=== PATIENT | female | born 1950 | race Caucasian/White ===

== ENCOUNTER 2016-10-30 14:59 | Observation (INO) ==
--- NOTE | 2016-10-30 15:49 | Emergency Department Note ---
Disposition Clinical Impression: HTN (hypertension), Confusion, Frail elderly, Diabetes, HLD (hyperlipidemia), Atrophy, cortical, Cerebrovascular disease, Pituitary adenoma, UTI (urinary tract infection), Lung mass, Thrombocythemia Disposition: Admitted As Inpatient Referrals: NO,PCP [Non-Partnered Physician] - Forms: ED Satisfaction Letter General Adult HPI - General Chief complaint: ED Altered Mental Status Stated complaint: AMS Time Seen by Provider: 10/30/16 15:38 Source: patient - History of Present Illness HPI Narrative: 66-year-old female reportedly had an episode of confusion or dizziness last week , she states her her friend noticed this, subsequently the patient's primary care physician ordered an MRI of her head. She came to the hospital today to get obtain the MRI, and per staff the patient was confused and did not really remember why she was at MRI, there was concern for confusion so the patient was sent to the ED. The patient reportedly feels better now. There is no history of convulsion fall syncope chest pain shortness of breath abdominal pain vomiting or diarrhea. The patient states she is diabetic and tells me that her hemoglobin A1c is 5.4 range. She denies headache neck stiffness rash or fever. No dysarthria or unilateral arm or leg weakness or numbness. There is no history of skin rash urinary problems or acute back pain. The patient came to the hospital by herself. She has no complaints at this time. Pain Scale: 0 - Related Data Home Medications Medication Instructions Recorded Confirmed Gabapentin [Neurontin] 300 mg PO TID 12/18/15 08/19/16 Latanoprost 1 drop BOTH EYES HS 12/18/15 08/19/16 Lisinopril [Zestril] 1 tab PO BID 12/18/15 08/19/16 Lovastatin [Altoprev] 40 mg PO DAILY 12/18/15 08/19/16 Metformin HCl [Fortamet] 1,000 mg PO BID 12/18/15 08/19/16 ClonazePAM [Klonopin] 2 mg PO HS 05/07/16 08/19/16 Venlafaxine HCl [Venlafaxine HCl 75 mg PO DAILY 05/07/16 08/19/16 ER] Previous Rx's Medication Instructions Recorded Bisacodyl [Dulcolax] 10 mg RC DAILY PRN #30 supp.rect 08/19/16 Allergies Allergy/AdvReac Type Severity Reaction Status Date / Time No Known Allergies Allergy Verified 10/30/16 15:30 All systems ED: reviewed and negative except as stated. Past Medical History - Past Medical History Medical history: Reports: CVA, diabetes, hyperlipidemia, osteoporosis, renal disease, other Surgical history: Reports: other Psychiatric history: Reports: anxiety, depression - Social History Smoking Status: Current every day smoker Smokeless Tobacco Status: No Alcohol use: Reports: none Drug use: Reports: none Physical Exam - General Limitations: no limitations General appearance: alert, in no apparent distress - Head Head exam: atraumatic, normocephalic, normal inspection - Eye Eye exam: Present: normal appearance, PERRL, EOMI. Absent: scleral icterus, conjunctival injection, miosis, mydriasis - ENT ENT exam: normal exam, normal oropharynx, mucous membranes moist, TM's normal bilaterally, normal external ear exam - Neck Neck exam: Present: normal inspection, full ROM, trachea midline. Absent: tenderness - Chest Chest inspection: Present: symmetric chest wall rise. Absent: tenderness - Respiratory Respiratory exam: Present: normal lung sounds bilaterally. Absent: respiratory distress, accessory muscle use, prolonged expiratory phase - Cardiovascular Cardiovascular exam: Present: regular rate, normal rhythm, normal heart sounds - Abdominal Exam Abdominal exam: Present: soft, Non-Tender, normal bowel sounds. Absent: tenderness, distention, guarding, rebound, rigidity - Extremities Exam Extremities exam: Present: normal inspection, full ROM, normal capillary refill. Absent: tenderness, pedal edema, joint swelling, calf tenderness - Expanded Lower Extremity Exam Lower leg exam: Absent: Homans' sign Neurovascular/Tendon exam: Present: normal capillary refill. Absent: motor deficit, sensory deficit, tendon deficit, extremity cold to touch, pallor - Back Exam Back exam: Present: normal inspection, full ROM. Absent: tenderness, CVA tenderness (R), CVA tenderness (L), vertebral tenderness - Neurological Exam Neurological exam: Present: alert, oriented X3, CN II-XII intact. Absent: motor sensory deficit - Psychiatric Psychiatric exam: Present: normal affect, normal mood - Skin Skin exam: Present: warm, dry, intact, normal color. Absent: rash, cyanosis, diaphoresis, erythema, pallor, mottled Course Vital Signs Temperature 98.3 F 10/30/16 15:27 Pulse Rate 70 10/30/16 15:27 Respiratory Rate 16 10/30/16 15:27 Blood Pressure 170/90 10/30/16 15:27 O2 Sat by Pulse Oximetry 96 10/30/16 15:27 Temperature 98.3 F 10/30/16 15:27 Pulse Rate 75 10/30/16 17:50 Respiratory Rate 16 10/30/16 17:20 Blood Pressure 159/97 10/30/16 17:50 O2 Sat by Pulse Oximetry 95 10/30/16 17:50 Oxygen Delivery Oxygen Delivery Room Air Medical Decision Making - MDM Narrative Medical decision making narrative: The patient's son-in-law came in and we reviewed the case with him, multiple episodes of confusion were identified. The patient recounts a history of being prescribed Cipro several days ago for a urinary tract infection. She still has urinary changes, IV Rocephin was given. The patient's diastolic pressure was high as 119 here in the emergency department. Based on the patient's age, vascular risk factors including diabetes and hypertension, notably elevated blood pressure, recent and recurrent episodes of confusion, associated UTI, and newly identified pulmonary nodule, I thought it would be appropriate to admit her to the hospital. I discussed the case with the hospitalist on-call as excepted the patient to their care. The patient is currently stable. Aspirin was ordered. - Lab Data Lab results reviewed: Yes I reviewed the patient's lab results. Result diagrams: 10/30/16 16:33 10/30/16 16:33 Lab Results 10/30/16 10/30/16 10/30/16 Range/Units 16:33 16:33 16:33 WBC 9.1 (4.3-11.1) K/mcL RBC 4.04 (3.82-4.97) M/mcL Hgb 12.0 (11.5-15.4) g/dL Hct 37.5 (35.3-44.9) % MCV 92.8 (83.0-100.0) fL MCH 29.7 (28.0-33.3) pg MCHC 32.0 (31.6-35.5) g/dL RDW 12.5 (11.5-14.5) % Plt Count 417 H (140-400) K/mcL MPV 8.8 L (9.4-12.4) fL Immature Gran % 0.6 (0-4) % Seg Neutrophils % 49.1 % Lymphocytes % 35.0 % Monocytes % 11.0 % Eosinophils % 3.5 % Basophils % 0.8 % Neutrophils # 4.5 (1.6-8.9) K/mcL Lymphocytes # 3.2 (0.6-4.6) K/mcL Monocytes # 1.0 (0.0-1.3) K/mcL Eosinophils # 0.3 (0.0-0.6) K/mcL Basophils # 0.1 (0.0-0.2) K/mcL PT 10.9 (9.4-12.1) Seconds INR 1.0 APTT 32.8 (26.0-36.0) Seconds Sodium 140 (136-145) mEq/L Potassium 4.0 (3.5-4.5) mEq/L Chloride 107 (98-109) mEq/L Carbon Dioxide 25 (19-29) mEq/L BUN 16 (7-20) mg/dL Creatinine 1.18 H (0.57-1.11) mg/dL Est GFR ( Amer) 56 L (> 60) Est GFR (Non-Af Amer) 46 L (> 60) BUN/Creatinine Ratio 14 (6-26) Glucose 59 L (70-99) mg/dL Calculated Osmolality 289 (280-300) Lactic Acid (0.5-2.2) mmol/L Calcium 10.0 (8.6-10.8) mg/dL Total Bilirubin 0.6 (0.2-1.2) mg/dL Direct Bilirubin 0.2 (0.0-0.5) mg/dL Indirect Bilirubin 0.4 (0.0-1.2) mg/dL AST 29 (5-34) Units/L ALT 19 (0-55) Units/L Alkaline Phosphatase 90 (38-126) Units/L Ammonia (18-72) mcmol/L Troponin I (0-0.03) ng/mL C-Reactive Protein (Less than 5) mg/L Serum Total Protein 8.1 (6.0-8.3) g/dL Albumin 3.5 (3.5-5.0) g/dL Globulin 4.6 H (2.4-3.5) g/dL Albumin/Globulin Ratio 0.8 L (1.1-2.2) TSH 0.793 (0.350-4.840) mcIU/mL Urine Color (Yellow) Urine Clarity (Clear) Urine pH (5.0-8.0) pH Units Ur Specific [place] (1.010-1.025) Urine Protein (Neg-Trace) mg/dL Urine Glucose (UA) (Normal) mg/dL Urine Ketones (Negative) mg/dL Urine Blood (Negative) Urine Nitrite (Negative) Urine Bilirubin (Negative) Urine Urobilinogen (Normal) mg/dL Ur Leukocyte Esterase (Negative) Urine Microscopic RBC (0-3) per hpf Urine Microscopic WBC (0-3) per hpf Ur Squamous Epith Cells (None-Few) per lpf Urine Bacteria (None-Few) per hpf Hyaline Casts (None-Few) per lpf Ur Culture Indicated? (NO) Salicylates (15-30) mg/dL Urine Opiates Screen (Kglrfd=467) ng/mL Acetaminophen (10-30) mcg/mL Ur Barbiturates Screen (Rusisp=781) ng/mL Ur Phencyclidine Scrn (Cutoff=25) ng/mL Ur Amphetamines Screen (Nbrvvz=6632) ng/mL U Benzodiazepines Scrn (Vfkfhg=903) ng/mL Urine Cocaine Screen (Cutoff= 300) ng/mL U Marijuana (THC) Screen (Cutoff = 50) ng/mL Ethyl Alcohol < 10 (0-10) mg/dL 10/30/16 10/30/16 10/30/16 Range/Units 16:33 16:33 16:33 WBC (4.3-11.1) K/mcL RBC (3.82-4.97) M/mcL Hgb (11.5-15.4) g/dL Hct (35.3-44.9) % MCV (83.0-100.0) fL MCH (28.0-33.3) pg MCHC (31.6-35.5) g/dL RDW (11.5-14.5) % Plt Count (140-400) K/mcL MPV (9.4-12.4) fL Immature Gran % (0-4) % Seg Neutrophils % % Lymphocytes % % Monocytes % % Eosinophils % % Basophils % % Neutrophils # (1.6-8.9) K/mcL Lymphocytes # (0.6-4.6) K/mcL Monocytes # (0.0-1.3) K/mcL Eosinophils # (0.0-0.6) K/mcL Basophils # (0.0-0.2) K/mcL PT (9.4-12.1) Seconds INR APTT (26.0-36.0) Seconds Sodium (136-145) mEq/L Potassium (3.5-4.5) mEq/L Chloride (98-109) mEq/L Carbon Dioxide (19-29) mEq/L BUN (7-20) mg/dL Creatinine (0.57-1.11) mg/dL Est GFR ( Amer) (> 60) Est GFR (Non-Af Amer) (> 60) BUN/Creatinine Ratio (6-26) Glucose (70-99) mg/dL Calculated Osmolality (280-300) Lactic Acid 1.2 (0.5-2.2) mmol/L Calcium (8.6-10.8) mg/dL Total Bilirubin (0.2-1.2) mg/dL Direct Bilirubin (0.0-0.5) mg/dL Indirect Bilirubin (0.0-1.2) mg/dL AST (5-34) Units/L ALT (0-55) Units/L Alkaline Phosphatase (38-126) Units/L Ammonia 24 (18-72) mcmol/L Troponin I 0.00 (0-0.03) ng/mL C-Reactive Protein (Less than 5) mg/L Serum Total Protein (6.0-8.3) g/dL Albumin (3.5-5.0) g/dL Globulin (2.4-3.5) g/dL Albumin/Globulin Ratio (1.1-2.2) TSH (0.350-4.840) mcIU/mL Urine Color (Yellow) Urine Clarity (Clear) Urine pH (5.0-8.0) pH Units Ur Specific [place] (1.010-1.025) Urine Protein (Neg-Trace) mg/dL Urine Glucose (UA) (Normal) mg/dL Urine Ketones (Negative) mg/dL Urine Blood (Negative) Urine Nitrite (Negative) Urine Bilirubin (Negative) Urine Urobilinogen (Normal) mg/dL Ur Leukocyte Esterase (Negative) Urine Microscopic RBC (0-3) per hpf Urine Microscopic WBC (0-3) per hpf Ur Squamous Epith Cells (None-Few) per lpf Urine Bacteria (None-Few) per hpf Hyaline Casts (None-Few) per lpf Ur Culture Indicated? (NO) Salicylates (15-30) mg/dL Urine Opiates Screen (Izgtkm=428) ng/mL Acetaminophen (10-30) mcg/mL Ur Barbiturates Screen (Yavqee=445) ng/mL Ur Phencyclidine Scrn (Cutoff=25) ng/mL Ur Amphetamines Screen (Fmlxyr=5281) ng/mL U Benzodiazepines Scrn (Gpgwph=686) ng/mL Urine Cocaine Screen (Cutoff= 300) ng/mL U Marijuana (THC) Screen (Cutoff = 50) ng/mL Ethyl Alcohol (0-10) mg/dL 10/30/16 10/30/16 10/30/16 Range/Units 16:33 16:55 16:58 WBC (4.3-11.1) K/mcL RBC (3.82-4.97) M/mcL Hgb (11.5-15.4) g/dL Hct (35.3-44.9) % MCV (83.0-100.0) fL MCH (28.0-33.3) pg MCHC (31.6-35.5) g/dL RDW (11.5-14.5) % Plt Count (140-400) K/mcL MPV (9.4-12.4) fL Immature Gran % (0-4) % Seg Neutrophils % % Lymphocytes % % Monocytes % % Eosinophils % % Basophils % % Neutrophils # (1.6-8.9) K/mcL Lymphocytes # (0.6-4.6) K/mcL Monocytes # (0.0-1.3) K/mcL Eosinophils # (0.0-0.6) K/mcL Basophils # (0.0-0.2) K/mcL PT (9.4-12.1) Seconds INR APTT (26.0-36.0) Seconds Sodium (136-145) mEq/L Potassium (3.5-4.5) mEq/L Chloride (98-109) mEq/L Carbon Dioxide (19-29) mEq/L BUN (7-20) mg/dL Creatinine (0.57-1.11) mg/dL Est GFR ( Amer) (> 60) Est GFR (Non-Af Amer) (> 60) BUN/Creatinine Ratio (6-26) Glucose (70-99) mg/dL Calculated Osmolality (280-300) Lactic Acid (0.5-2.2) mmol/L Calcium (8.6-10.8) mg/dL Total Bilirubin (0.2-1.2) mg/dL Direct Bilirubin (0.0-0.5) mg/dL Indirect Bilirubin (0.0-1.2) mg/dL AST (5-34) Units/L ALT (0-55) Units/L Alkaline Phosphatase (38-126) Units/L Ammonia (18-72) mcmol/L Troponin I (0-0.03) ng/mL C-Reactive Protein 4 (Less than 5) mg/L Serum Total Protein (6.0-8.3) g/dL Albumin (3.5-5.0) g/dL Globulin (2.4-3.5) g/dL Albumin/Globulin Ratio (1.1-2.2) TSH (0.350-4.840) mcIU/mL Urine Color Yellow (Yellow) Urine Clarity Cloudy A (Clear) Urine pH 6.0 (5.0-8.0) pH Units Ur Specific [place] 1.023 (1.010-1.025) Urine Protein 30 H (Neg-Trace) mg/dL Urine Glucose (UA) 100 H (Normal) mg/dL Urine Ketones Negative (Negative) mg/dL Urine Blood Negative (Negative) Urine Nitrite Negative (Negative) Urine Bilirubin Small H (Negative) Urine Urobilinogen Normal (Normal) mg/dL Ur Leukocyte Esterase Small H (Negative) Urine Microscopic RBC 3-5 H (0-3) per hpf Urine Microscopic WBC 15-30 H (0-3) per hpf Ur Squamous Epith Cells Many H (None-Few) per lpf Urine Bacteria Moderate H (None-Few) per hpf Hyaline Casts None Seen (None-Few) per lpf Ur Culture Indicated? YES A (NO) Salicylates < 5.0 L (15-30) mg/dL Urine Opiates Screen Negative (Wweyxi=170) ng/mL Acetaminophen < 1.0 L (10-30) mcg/mL Ur Barbiturates Screen Negative (Oxsdng=367) ng/mL Ur Phencyclidine Scrn Negative (Cutoff=25) ng/mL Ur Amphetamines Screen Negative (Zalpwc=9183) ng/mL U Benzodiazepines Scrn Positive H (Uevbie=484) ng/mL Urine Cocaine Screen Negative (Cutoff= 300) ng/mL U Marijuana (THC) Screen Negative (Cutoff = 50) ng/mL Ethyl Alcohol (0-10) mg/dL - Radiology Data Radiology results reviewed: Yes I reviewed the patient's radiology results.
[2016-10-30] MEDS ORDERED: *HR* Labetalol 20 MG/4 ML SYRINGE IVP ONE (16:19)
[2016-10-30 16:59] LABS: Basophils # 0.1 K/mcL (0.0-0.2); Basophils % 0.8 %; Eosinophils # 0.3 K/mcL (0.0-0.6); Eosinophils % 3.5 %; Hematocrit 37.5 % (35.3-44.9); Immature Granulocytes % 0.6 % (0-4); Lymphocytes # 3.2 K/mcL (0.6-4.6); Mean Corpuscular Hemoglobin 29.7 pg (28.0-33.3); Mean Corpuscular Volume 92.8 fL (83.0-100.0); Mean Platelet Volume 8.8 fL (9.4-12.4); Neutrophils # 4.5 K/mcL (1.6-8.9); Platelet Count 417 K/mcL (140-400); Red Blood Count 4.04 M/mcL (3.82-4.97); Red Cell Distribution Width 12.5 % (11.5-14.5); Segmented Neutrophils % 49.1 %
[2016-10-30 17:03] LABS: Bilirubin,Urine Small (Negative); Blood,Urine Negative (Negative); Clarity,Urine Cloudy (Clear); Color,Urine Yellow (Yellow); Glucose,Urine (UA) 100 mg/dL (Normal); Ketones,Urine Negative (Negative); Leukocyte Esterase,Urine Small (Negative); Nitrite,Urine Negative (Negative); Protein,Urine 30 mg/dL (Neg-Trace); Specific Gravity,Urine 1.023 (1.010-1.025); Urobilinogen,Urine Normal (Normal)
[2016-10-30 17:05] LABS: Bacteria,Urine Moderate per hpf (None-Few); Hyaline Casts,Urine None Seen per lpf (None-Few); Squamous Epithelial Cell,Urine Many per lpf (None-Few); WBC,Urine 15-30 per hpf (0-3)
[2016-10-30 17:06] LABS: Prothrombin Time 10.9 Seconds (9.4-12.1)
[2016-10-30 17:09] LABS: Activated Partial Thrombo Time 32.8 Seconds (26.0-36.0)
[2016-10-30 17:09] LABS: Amphetamine Screen,Urine Negative ng/mL (Cutoff=1000); Barbiturate Screen,Urine Negative ng/mL (Cutoff=200); Benzodiazepines Screen,Urine Positive ng/mL (Cutoff=200); Cannabinoid Screen,Urine Negative ng/mL (Cutoff = 50); Cocaine Screen,Urine Negative ng/mL (Cutoff= 300); Opiate Screen,Urine Negative ng/mL (Cutoff=300); Phencyclidine Screen,Urine Negative ng/mL (Cutoff=25)
[2016-10-30 17:14] LABS: Alanine Aminotransferase 19 Units/L (0-55); Albumin 3.5 g/dL (3.5-5.0); Albumin/Globulin Ratio 0.8 (1.1-2.2); Alkaline Phosphatase 90 Units/L (38-126); Aspartate Amino Transferase 29 Units/L (5-34); BUN/Creatinine Ratio 14 (6-26); Bilirubin,Direct 0.2 mg/dL (0.0-0.5); Bilirubin,Indirect 0.4 mg/dL (0.0-1.2); Bilirubin,Total 0.6 mg/dL (0.2-1.2); Blood Urea Nitrogen 16 mg/dL (7-20); Carbon Dioxide 25 mEq/L (19-29); Chloride 107 mEq/L (98-109); Globulin 4.6 g/dL (2.4-3.5); Glucose 59 mg/dL (70-99); Osmolality,Calculated 289 (280-300); Sodium 140 mEq/L (136-145); Total Protein 8.1 g/dL (6.0-8.3); eGFR For African Americans 56 (> 60); eGFR For Non-African Americans 46 (> 60)
[2016-10-30 17:15] LABS: Acetaminophen < 1.0 mcg/mL (10-30); Ethanol < 10 mg/dL (0-10); Salicylate < 5.0 mg/dL (15-30)
[2016-10-30 17:32] LABS: C-Reactive Protein 4 mg/L (Less than 5)
[2016-10-30 17:35] LABS: Thyroid Stimulating Hormone 0.793 mcIU/mL (0.350-4.840)
[2016-10-30] MEDS ORDERED: Aspirin 325 MG TABLET PO ONE (17:47)
[2016-10-30] MEDS ORDERED: Naloxone 0.4 MG/ML INJ IVP PRN (18:27)
[2016-10-30] MEDS ORDERED: 0.9 % Sodium Chloride 1,000 ML IVC SCH (18:30)
[2016-10-30] MEDS ORDERED: Sennosides/Docusate Sodium TABLET PO PRN (20:32)
[2016-10-30] MEDS ORDERED: *HR* Morphine 2 MG/ML SYRINGE IVP PRN (20:33)
[2016-10-30] MEDS ORDERED: D5% in Water 1,000 ML IVC PRN (20:33)
[2016-10-30] MEDS ORDERED: *HR* Dextrose 50 % in Water (Syg) 50 ML SYRINGE IVP PRN (20:33)
[2016-10-30] MEDS ORDERED: *HR* LORazepam 2 MG/ML VIAL IVP PRN (20:33)
[2016-10-30] MEDS ORDERED: Acetaminophen 325 MG TABLET PO PRN (20:33)
[2016-10-30] MEDS ORDERED: Ondansetron 4 MG/2 ML VIAL IVP PRN (20:33)
[2016-10-30] MEDS ORDERED: Dextrose Gel 15 GM PO PRN ×2 (20:33)
[2016-10-30] MEDS ORDERED: Haloperidol Lactate 5 MG/ML VIAL IVP PRN (20:33)
[2016-10-30] MEDS ORDERED: *HR* OxyCODONE Immed Rel 5 MG TABLET PO PRN (20:33)
[2016-10-30] MEDS ORDERED: Albuterol 2.5 MG/3 ML NEBULIZER IH PRN (20:45)
--- NOTE | 2016-10-30 20:50 | Internal Med History&Physical ---
Date of Encounter: 10/30/16 Time of Encounter: 20:00 Assessment and Plan (1) Toxic metabolic encephalopathy Status: Resolved . (2) Delirium due to medical condition without behavioral disturbance Status: Resolved . (3) Frail elderly Status: Acute . (4) UTI (urinary tract infection) Status: Acute . Qualifiers: Urinary tract infection type: site unspecified Qualified Code(s): N39.0 - Urinary tract infection, site not specified Internal Medicine - H&P: HPI Chief complaint: Confusion. Admitted From: Emergency Dept Plans for Post Hospital Care: Home History of present illness: Ms. Green is a 66 year old female with history significant for type II DM/DM periph polyneuropathy, CVA/TIA, pituitary adenoma, HTN, HLD, OA/OP/chr MSK pain , depression/anxiety/bipolar dis, obesity, nicotine dependency, etc.. The patient is admitted to [facility] via the emergency department which presents with complaints of confusion, attentiveness/ forgetfulness and episodic dizziness/presyncope over the preceding week. She states this was brought to her attention by a friend. Son in law validated history. He stated that multiple episodes of confusion and disorientation were experienced. The patient volunteered that being prescribed Cipro several days prior for a urinary tract infection. In spite of the treatment course she continued to have symptoms of dysuria frequency and lower abdominal discomfort. Subsequently PCP performed MRI of the head and further the patient to the emergency department for further evaluation. No history of any mechanical falls fevers chills sweats completed syncope chest pain dyspnea at rest or with exertion abdominal pain flank pain nausea vomiting diarrhea upper respiratory complaints spitted production loss of vision slurring of speech unilateral weakness etc. Patient carries a diagnosis of adult onset diabetes mellitus managed by metformin. Hemoglobin A1c has been running in the less than 6 range. Today's presentation she denies any headaches stiffed neck rash or chills sweats. Denies a problematic, chronic headaches are migraine history. Denies any indiscretions with prescribed medications. Denies any recent hospitalizations travel or sick contacts. Findings in the ED noted vital signs to be stable. CBC with differential, coagulation profile, comprehensive metabolic panel were found to be benign. BUN was 16 with a creatinine of 1.18. GFR 46. TSH 0.79. Ethyl alcohol less than 10. Ammonia 24. Troponin 0.00. Lactic acid 1.2. CRP 4. Urine drug screen positive for benzodiazepines ( prescribed Klonopin). Acetaminophen and salicylate level normal. Urinalysis cloudy appearance positive protein and positive glucose small bilirubin and small leukocyte esterase. 5 RBC. 30 WBC. Many epithelial cells. Moderate bacteria chest x-ray demonstrated no acute airspace consolidation. Subtle 7 mm nodular opacity overlying right lung apex indeterminate. Further assessment and recommended. MRI of the brain demonstrated no acute intracranial abnormality. No acute infarct. Global parenchymal volume loss with chronic microvascular ischemic changes. Prominent pituitary. Unchanged. Related to adenoma. Preliminary impression suggest acute toxic-metabolic encephalopathy with delirium in the setting of protracted urinary tract infection. Mild acute/ chronic kidney injury stage III. Urinary sediment suggestive of persisting infection. SIRS/sepsis criteria not filled at the time of admission. Patient presents risk for further acute clinical decline and morbidity given her frailty , presenting chief complaints and comorbidities. Workup and treatment will proceed comprehensibly. The patient was visited and interviewed and examined. Cumulative laboratory and radiographic data base will be considered and discussed. Pertinent ancillary medical records including ECW and PCI documentation when available was reviewed and considered. Given the patient's presenting concerns, past medical history, clinical findings and symptoms, she is admitted at this time will undergo further evaluation and disposition. Orders were written as per the computerized physician sales order clerk system.......................................................................... .................... Consultative opinions will be sought as clinical circumstances justify. Pain management needs will be addressed. Laboratory+radiographic data base will be updated as appropriate. Studies include: Cultures of blood and urine and sputum, prolactin, pt/inr, aptt, ddimer , cpk, UA, UDS, cardiac injury panel, BNP, metabolic and hematologic panel, magnesium, phosphorus, ionized calcium, thyroid panel, lipid profile, A1c, C- peptide, CRP, sedimentation rate, ammonia, blood gas, lactic acid, serologies, etc. Precautions: Aspiration, fall, seizure, delirium protocol/surveillance initiated. Telemetry with continuous hemodynamic monitoring and pulse oximetry initiated. Empiric antibiotic coverage: Intravenous Rocephin pending culture data. Special studies: CT head/chest, chest x-ray, telemetry, EKG. Pulmonary toilet: Incentive spirometry. PRN: aerosol bronchodilator, mucolytic, antitussive. Supplemental oxygen. Corticosteroid therapy PRN. CPAP/BiPAP supplemental oxygen delivery PRN. Aerosol Mucomyst therapy PRN. Fluid and electrolyte repletion efforts will proceed. Careful attention to fluid balance and renal recovery will be emphasized. Avoidance of nephrotoxic exposure and adverse drug drug interaction in the setting of impaired renal function will be monitored closely. Acute coronary syndrome protocol/surveillance initiated. DVT and PUD prophylaxis initiated: PPI therapy, intermittent pneumatic cuffs. Subcutaneous heparin/Lovenox. Early ambulation will be encouraged. Immunization updates recommended. Influenza and pneumococcal vaccinations as part of ongoing preventative healthcare recommendations strongly recommended. Smoking cessation counseling briefly addressed. Patient says nicotine substitution with this hospitalization. Advanced care directive discussion briefly addressed. Patient does not declare any healthcare restrictions at this time. Cardiovascular risk appraisal and cardiovascular risk reduction efforts will be emphasized. Physical+occupational therapy asked to evaluate patient's functional capacity and progressive mobility as her circumstances permit. Sliding scale insulin coverage, ADA dietary restraint and schedule an as-needed basis fingerstick glucose assessments were initiated. Nutrition/diabetes education counseling may be considered as circumstances justify. Outpatient medication schedules will be reviewed, confirmed and facilitated as appropriate. Reconciliation of home treatments including adjustments, substitutions and reintroduction into the treatment regimen will address necessary maintenance therapies for chronic pre-existing medical conditions. Plan of care has been reviewed and discussed in detail with the patient. Questions addressed. Hospital course dictated by clinical findings, treatment response and potential consultative interventions. Patient is at risk for further acute clinical decline-morbidity due to her frailty, presenting chief complaints and comorbid conditions. Condition is serious. Prognosis is guarded. CODE STATUS is full. Past Med Surg Social Fam HX - Past Medical History Source: old records reviewed Medical history: arthritis, CVA, diabetes, fibromyalgia, GERD, glaucoma, hyperlipidemia, hypertension, kidney stones, osteoporosis, renal disease, syncope, TIA, other (DM periph polyneuropathy.Chronic pain syndrome.Dorsalgia.Iron def anemia.MGUS.Severe constipation.) Psychiatric history: anxiety, bipolar, depression, other - Past Surgical History Surgical History: cholecystectomy, hysterectomy, orthopedic, other, other - Social History Smoking Status: Current every day smoker Smokeless Tobacco Status: No Alcohol use: none Drug use: none Occupational status: retired Current living situation: Home - Independent, Home Activity Level: Independent ambulation, Mostly sedentary Recent Out of Country Travel Within the Last 8 Weeks: No Exposure or Possible Exposure to Illness During Travel: No - Family History Daughter Hx Family Endocrine Disorder: Yes (diabetic) Internal Medicine - H&P: Meds Gabapentin [Neurontin] 300 mg PO QID 12/18/15 [History] Latanoprost [Xalatan] 1 drop BOTH EYES HS 12/18/15 [History] ClonazePAM [Klonopin] 2 mg PO HS 05/07/16 [History] Venlafaxine HCl [Venlafaxine HCl ER] 150 mg PO DAILY 05/07/16 [History] Alendronate Sodium [Fosamax] 70 mg PO QWEEK 10/30/16 [History] Cyanocobalamin (Vitamin B-12) [Vitamin B12] 1,000 mcg PO DAILY 10/30/16 [History ] Lovastatin 40 mg PO HS 10/30/16 [History] Melatonin 10 mg PO HS 10/30/16 [History] Metformin HCl [Glucophage] 1,000 mg PO QAM 10/30/16 [History] Metoprolol XL (24 HR) Succ [Toprol XL] 25 mg PO DAILY 10/30/16 [History] Sennosides/Docusate Sodium [Senna Plus] 1 each PO QPM PRN 10/30/16 [History] Allergies No Known Allergies Allergy (Verified 10/30/16 15:30) ROS unobtainable: due to mental status All Systems PM: A 10-system review of systems was performed and is negative for pertinent findings except as documented above in the HPI. - Constitutional Constitutional: as per HPI - EENT Eyes: as per HPI Ears: as per HPI Nose, mouth and throat: as per HPI - Cardiovascular Cardiovascular ROS IM: as per HPI - Respiratory Respiratory: as per HPI - Gastrointestinal Gastrointestinal: as per HPI - Genitourinary Genitourinary: as per HPI Menstruation: as per HPI - Musculoskeletal Musculoskeletal ROS IM: as per HPI - Integumentary Integumentary IM: as per HPI - Neurological Neurological ROS: as per HPI - Psychiatric Psychiatric: as per HPI - Endocrine Endocrine IM: as per HPI - Hematologic/Lymphatic Hematologic/Lymphatic: as per HPI - Allergic/Immunologic Allergic/Immunologic: as per HPI - Constitutional Vitals: Temp Pulse Resp BP Pulse Ox 98 F 66 16 156/69 96 10/30/16 20:17 10/30/16 20:17 10/30/16 20:17 10/30/16 20:17 10/30/16 20:17 Vital Signs Temp Pulse Resp BP Pulse Ox 10/30/16 20:17 98 F 66 16 156/69 96 10/30/16 19:18 67 16 163/89 96 10/30/16 18:21 16 162/97 10/30/16 18:05 65 16 161/93 96 10/30/16 17:50 75 159/97 95 10/30/16 17:20 67 16 176/93 93 10/30/16 17:07 69 16 177/99 99 10/30/16 16:40 168/91 10/30/16 15:41 69 16 176/119 96 10/30/16 15:27 98.3 F 70 16 170/90 96 Intake and Output 10/30/16 10/30/16 10/30/16 07:59 15:59 23:59 Other: Weight 72.575 kg 74.389 kg Blood Glucose* 80 Patient Weight 10/30/16 23:59 Weight 74.389 kg General appearance: Present: mild distress, A&O X 3, answers questions appropriately - Head Head exam: Present: atraumatic, normocephalic - Eye Eye exam: Present: normal appearance, PERRL, conjuntiva pink, sclera anicteric Pupils: Present: normal accommodation - ENT ENT exam: Present: mucous membranes moist, normal oropharynx - Neck Neck exam general surgery: Present: supple, trachea midline. Absent: lymphadenopathy - Respiratory Respiratory exam: Present: decreased breath sounds, CTAB. Absent: accessory muscle use, rales, rhonchi, wheezes - Cardiovascular Cardiovascular exam: Present: distant heart sounds, RRR, +S1, +S2. Absent: diastolic murmur, gallop, rubs, systolic murmur - GI/Abdominal GI/Abdominal exam: Present: normal bowel sounds, soft, no peritoneal signs. Absent: distended, tenderness - Extremities Exam Extremities exam: Present: warm, radial pulses palpable and symetrical. Absent : calf tenderness, cyanotic, pedal edema - Neurological Exam Neurological exam: Present: alert, CN II-XII intact, oriented X3, no focal deficits. Absent: pronater drift, facial droop, speech deficit - Expanded Neurological Exam Neurological exam expanded: Present: protecting the airway. Absent: ataxia, expressive aphasia, receptive aphasia, tremor Patient oriented to: Present: person, place, time Coma Scale Eye Opening: Spontaneous Coma Scale Motor Response: Obeys Commands Coma Scale Verbal Response: Oriented Coma Scale Total: 15 - Psychiatric Psychiatric exam: Present: normal affect, normal mood - Skin Skin exam: Present: dry, intact Internal Med - H&P Results - Labs CBC & Chem 7: 11/01/16 03:49 11/01/16 03:49 Labs: Short CBC 10/30/16 Range/Units 16:33 WBC 9.1 (4.3-11.1) K/mcL Hgb 12.0 (11.5-15.4) g/dL Hct 37.5 (35.3-44.9) % Plt Count 417 H (140-400) K/mcL Neutrophils # 4.5 (1.6-8.9) K/mcL BMP 10/30/16 Range/Units 16:33 Sodium 140 (136-145) mEq/L Potassium 4.0 (3.5-4.5) mEq/L Chloride 107 (98-109) mEq/L Carbon Dioxide 25 (19-29) mEq/L BUN 16 (7-20) mg/dL Creatinine 1.18 H (0.57-1.11) mg/dL Glucose 59 L (70-99) mg/dL Calcium 10.0 (8.6-10.8) mg/dL Cardiac Enzymes 10/30/16 Range/Units 16:33 Troponin I 0.00 (0-0.03) ng/mL Liver Function 10/30/16 Range/Units 16:33 Total Bilirubin 0.6 (0.2-1.2) mg/dL Direct Bilirubin 0.2 (0.0-0.5) mg/dL AST 29 (5-34) Units/L ALT 19 (0-55) Units/L Alkaline Phosphatase 90 (38-126) Units/L Albumin 3.5 (3.5-5.0) g/dL Urine 10/30/16 Range/Units 16:58 Urine Color Yellow (Yellow) Urine Clarity Cloudy A (Clear) Urine pH 6.0 (5.0-8.0) pH Units Ur Specific [place] 1.023 (1.010-1.025) Urine Protein 30 H (Neg-Trace) mg/dL Urine Glucose (UA) 100 H (Normal) mg/dL Abnormal lab results Plt Count 417 K/mcL (140-400) H 10/30/16 16:33 MPV 8.8 fL (9.4-12.4) L 10/30/16 16:33 Creatinine 1.18 mg/dL (0.57-1.11) H 10/30/16 16:33 Est GFR ( Amer) 56 (> 60) L 10/30/16 16:33 Est GFR (Non-Af Amer) 46 (> 60) L 10/30/16 16:33 Glucose 59 mg/dL (70-99) L 10/30/16 16:33 Globulin 4.6 g/dL (2.4-3.5) H 10/30/16 16:33 Albumin/Globulin Ratio 0.8 (1.1-2.2) L 10/30/16 16:33 Urine Clarity Cloudy (Clear) A 10/30/16 16:58 Urine Protein 30 mg/dL (Neg-Trace) H 10/30/16 16:58 Urine Glucose (UA) 100 mg/dL (Normal) H 10/30/16 16:58 Urine Bilirubin Small (Negative) H 10/30/16 16:58 Ur Leukocyte Esterase Small (Negative) H 10/30/16 16:58 Urine Microscopic RBC 3-5 per hpf (0-3) H 10/30/16 16:58 Urine Microscopic WBC 15-30 per hpf (0-3) H 10/30/16 16:58 Ur Squamous Epith Cells Many per lpf (None-Few) H 10/30/16 16:58 Urine Bacteria Moderate per hpf (None-Few) H 10/30/16 16:58 Ur Culture Indicated? YES (NO) A 10/30/16 16:58 Salicylates < 5.0 mg/dL (15-30) L 10/30/16 16:33 Acetaminophen < 1.0 mcg/mL (10-30) L 10/30/16 16:33 U Benzodiazepines Scrn Positive ng/mL (Ajiwgp=235) H 10/30/16 16:55 Laboratory Results WBC 9.1 K/mcL (4.3-11.1) 10/30/16 16:33 RBC 4.04 M/mcL (3.82-4.97) 10/30/16 16:33 Hgb 12.0 g/dL (11.5-15.4) 10/30/16 16:33 Hct 37.5 % (35.3-44.9) 10/30/16 16:33 MCV 92.8 fL (83.0-100.0) 10/30/16 16:33 MCH 29.7 pg (28.0-33.3) 10/30/16 16:33 MCHC 32.0 g/dL (31.6-35.5) 10/30/16 16:33 RDW 12.5 % (11.5-14.5) 10/30/16 16:33 Plt Count 417 K/mcL (140-400) H 10/30/16 16:33 MPV 8.8 fL (9.4-12.4) L 10/30/16 16:33 Immature Gran % 0.6 % (0-4) 10/30/16 16:33 Seg Neutrophils % 49.1 % 10/30/16 16:33 Lymphocytes % 35.0 % 10/30/16 16:33 Monocytes % 11.0 % 10/30/16 16:33 Eosinophils % 3.5 % 10/30/16 16:33 Basophils % 0.8 % 10/30/16 16:33 Neutrophils # 4.5 K/mcL (1.6-8.9) 10/30/16 16:33 Lymphocytes # 3.2 K/mcL (0.6-4.6) 10/30/16 16:33 Monocytes # 1.0 K/mcL (0.0-1.3) 10/30/16 16:33 Eosinophils # 0.3 K/mcL (0.0-0.6) 10/30/16 16:33 Basophils # 0.1 K/mcL (0.0-0.2) 10/30/16 16:33 PT 10.9 Seconds (9.4-12.1) 10/30/16 16:33 INR 1.0 10/30/16 16:33 APTT 32.8 Seconds (26.0-36.0) 10/30/16 16:33 Sodium 140 mEq/L (136-145) 10/30/16 16:33 Potassium 4.0 mEq/L (3.5-4.5) 10/30/16 16:33 Chloride 107 mEq/L (98-109) 10/30/16 16:33 Carbon Dioxide 25 mEq/L (19-29) 10/30/16 16:33 BUN 16 mg/dL (7-20) 10/30/16 16:33 Creatinine 1.18 mg/dL (0.57-1.11) H 10/30/16 16:33 Est GFR ( Amer) 56 (> 60) L 10/30/16 16:33 Est GFR (Non-Af Amer) 46 (> 60) L 10/30/16 16:33 BUN/Creatinine Ratio 14 (6-26) 10/30/16 16:33 Glucose 59 mg/dL (70-99) L 10/30/16 16:33 Calculated Osmolality 289 (280-300) 10/30/16 16:33 Lactic Acid 1.2 mmol/L (0.5-2.2) 10/30/16 16:33 Calcium 10.0 mg/dL (8.6-10.8) 10/30/16 16:33 Total Bilirubin 0.6 mg/dL (0.2-1.2) 10/30/16 16:33 Direct Bilirubin 0.2 mg/dL (0.0-0.5) 10/30/16 16:33 Indirect Bilirubin 0.4 mg/dL (0.0-1.2) 10/30/16 16:33 AST 29 Units/L (5-34) 10/30/16 16:33 ALT 19 Units/L (0-55) 10/30/16 16:33 Alkaline Phosphatase 90 Units/L (38-126) 10/30/16 16:33 Ammonia 24 mcmol/L (18-72) 10/30/16 16:33 Troponin I 0.00 ng/mL (0-0.03) 10/30/16 16:33 C-Reactive Protein 4 mg/L (Less than 5) 10/30/16 16:33 Serum Total Protein 8.1 g/dL (6.0-8.3) 10/30/16 16:33 Albumin 3.5 g/dL (3.5-5.0) 10/30/16 16:33 Globulin 4.6 g/dL (2.4-3.5) H 10/30/16 16:33 Albumin/Globulin Ratio 0.8 (1.1-2.2) L 10/30/16 16:33 TSH 0.793 mcIU/mL (0.350-4.840) 10/30/16 16:33 Urine Color Yellow (Yellow) 10/30/16 16:58 Urine Clarity Cloudy (Clear) A 10/30/16 16:58 Urine pH 6.0 pH Units (5.0-8.0) 10/30/16 16:58 Ur Specific [place] 1.023 (1.010-1.025) 10/30/16 16:58 Urine Protein 30 mg/dL (Neg-Trace) H 10/30/16 16:58 Urine Glucose (UA) 100 mg/dL (Normal) H 10/30/16 16:58 Urine Ketones Negative mg/dL (Negative) 10/30/16 16:58 Urine Blood Negative (Negative) 10/30/16 16:58 Urine Nitrite Negative (Negative) 10/30/16 16:58 Urine Bilirubin Small (Negative) H 10/30/16 16:58 Urine Urobilinogen Normal mg/dL (Normal) 10/30/16 16:58 Ur Leukocyte Esterase Small (Negative) H 10/30/16 16:58 Urine Microscopic RBC 3-5 per hpf (0-3) H 10/30/16 16:58 Urine Microscopic WBC 15-30 per hpf (0-3) H 10/30/16 16:58 Ur Squamous Epith Cells Many per lpf (None-Few) H 10/30/16 16:58 Urine Bacteria Moderate per hpf (None-Few) H 10/30/16 16:58 Hyaline Casts None Seen per lpf (None-Few) 10/30/16 16:58 Ur Culture Indicated? YES (NO) A 10/30/16 16:58 Salicylates < 5.0 mg/dL (15-30) L 10/30/16 16:33 Urine Opiates Screen Negative ng/mL (Hltxyt=701) 10/30/16 16:55 Acetaminophen < 1.0 mcg/mL (10-30) L 10/30/16 16:33 Ur Barbiturates Screen Negative ng/mL (Wtlfrz=296) 10/30/16 16:55 Ur Phencyclidine Scrn Negative ng/mL (Cutoff=25) 10/30/16 16:55 Ur Amphetamines Screen Negative ng/mL (Ezfubp=0819) 10/30/16 16:55 U Benzodiazepines Scrn Positive ng/mL (Hukpiq=978) H 10/30/16 16:55 Urine Cocaine Screen Negative ng/mL (Cutoff= 300) 10/30/16 16:55 U Marijuana (THC) Screen Negative ng/mL (Cutoff = 50) 10/30/16 16:55 Ethyl Alcohol < 10 mg/dL (0-10) 10/30/16 16:33 Impressions Chest X-Ray 10/30/16 15:51 IMPRESSION: 1. No acute airspace consolidation. 2. Subtle 7 mm nodular opacity overlying the right lung apex, new from prior exams. As this could represent a pulmonary nodule, suggest further characterization with a chest CT. D/ / Michael Belcher MD / Michael Belcher MD Interpreting Provider: Michael Belcher MD
[2016-10-30 21:41] LABS: Hemoglobin A1C 5.7 %
[2016-10-30 22:08] LABS: Prolactin 11.83 ng/mL (5.18-26.53)
[2016-10-30] MEDS: Melatonin 3 MG TABLET PO SCH (22:21)
[2016-10-30] MEDS: Insulin LISPRO 300 UNITS/3 ML VIAL SQ SCH (22:22)
[2016-10-30] MEDS: clonazePAM 1 MG TABLET PO SCH (22:22)
[2016-10-30] MEDS: Latanoprost 2.5 ML BOTTLE BOTH EYES SCH (22:26)
[2016-10-30] MEDS: Ipratropium/Albuterol Neb 3 ML IH SCH (23:06)
[2016-10-31 03:56] LABS: Basophils # 0.1 K/mcL (0.0-0.2); Basophils % 0.8 %; Eosinophils # 0.3 K/mcL (0.0-0.6); Eosinophils % 4.2 %; Hematocrit 31.8 % (35.3-44.9); Hemoglobin 10.6 g/dL (11.5-15.4); Immature Granulocytes % 0.5 % (0-4); Lymphocytes # 3.1 K/mcL (0.6-4.6); Lymphocytes % 39.1 %; Mean Corpuscular HGB Conc 33.3 g/dL (31.6-35.5); Mean Corpuscular Hemoglobin 30.8 pg (28.0-33.3); Mean Corpuscular Volume 92.4 fL (83.0-100.0); Mean Platelet Volume 8.9 fL (9.4-12.4); Monocytes # 0.9 K/mcL (0.0-1.3); Neutrophils # 3.5 K/mcL (1.6-8.9); Platelet Count 330 K/mcL (140-400); Red Blood Count 3.44 M/mcL (3.82-4.97); Red Cell Distribution Width 12.5 % (11.5-14.5); Segmented Neutrophils % 44.4 %
[2016-10-31 03:57] LABS: VBG HCO3 29.5 mEq/L (21-27); VBG PH 7.33 pH Units (7.32-7.42)
[2016-10-31 04:18] LABS: Calcium 9.2 mg/dL (8.6-10.8); Chol/HDL Ratio 3.9 (0-4.9); Phosphorous 3.9 mg/dL (2.3-4.7); Potassium 4.3 mEq/L (3.5-4.5)
[2016-10-31] MEDS: Ipratropium/Albuterol Neb 3 ML IH SCH ×4 (04:39→22:53)
[2016-10-31 04:42] LABS: Thyroid Stimulating Hormone 0.917 mcIU/mL (0.350-4.840)
[2016-10-31] MEDS: Insulin LISPRO 300 UNITS/3 ML VIAL SQ SCH ×4 (08:34→21:17)
--- NOTE | 2016-10-31 08:42 | Neurology - Consult Note ---
Date of Encounter: 10/31/16 Time of Encounter: 08:42 Assessment and Plan (1) Confusion Current Visit: Yes Status: Acute Brain MRI from yesterday showed no acute intracranial abnormality, no acute infarct, global parenchymal volume loss with chronic microvascular ischemic change and there appears to be unchanged prominence of the pituitary, which is likely related to the adenoma seen on the prior exam in 2012, patient states that she knows about this adenoma for the last 6 years. Patient is currently getting IV antibiotic for urinary tract infection, this morning patient was alert and oriented 3, answered questions and followed my commands appropriately , does not seem confused or disoriented. Her intermittent confusion since a week ago is likely secondary to underlying urinary tract infection, ammonia and lactic acid levels were not elevated yesterday, no significant electrolyte abnormalities noted from this morning's lab, recommend continuation of treatment for underlying infection. History of Present Illness Chief complaint: Confusion HPI: Ms. Green is a 66 year old female with history of diabetes type 2, chronic kidney disease stage III, chronic anemia, obstructive sleep apnea noncompliant with CPAP, tobacco abuse and hypertension who was brought to the ER with chief complaint of intermittent confusion. Patient lives alone at home, does all activities of daily living by herself, she drives almost every day, has no baseline dementia, since a week ago patient's friend noticed that patient had intermittent disorientation/confusion, around the same time patient also developed urinary tract infection which was not treated completely as outpatient and patient was also complaining of occasional subjective fever/ chills with dark-colored urine. When I spoke to her in the room she was alert and oriented 3, answered to my questions and followed commands appropriately. Brain MRI from yesterday showed no acute intracranial abnormality, no acute infarct, global parenchymal volume loss with chronic microvascular ischemic change and there appears to be unchanged prominence of the pituitary, which is likely related to the adenoma seen on the prior exam in 2012, patient states that she knows about this adenoma for the last 6 years. Patient denies slurred speech, facial droop, visual changes, headache, neck pain, tingling/numbness/ weakness of upper/lower extremities or urinary/bowel incontinence. Past Med Surg Social Fam HX - Past Medical History Medical history: arthritis, CVA, diabetes, fibromyalgia, GERD, glaucoma, hyperlipidemia, hypertension, kidney stones, osteoporosis, renal disease, syncope, TIA, other (DM periph polyneuropathy.Chronic pain syndrome.Dorsalgia.Iron def anemia.MGUS.Severe constipation.) Psychiatric history: anxiety, bipolar, depression, other - Past Surgical History Surgical History: cholecystectomy, hysterectomy, orthopedic, other, other - Social History Smoking Status: Current every day smoker Smokeless Tobacco Status: No Alcohol use: none Drug use: none - Family History Daughter Hx Family Endocrine Disorder: Yes (diabetic) Medications and Allergies Gabapentin [Neurontin] 300 mg PO QID 12/18/15 [History] Latanoprost [Xalatan] 1 drop BOTH EYES HS 12/18/15 [History] ClonazePAM [Klonopin] 2 mg PO HS 05/07/16 [History] Venlafaxine HCl [Venlafaxine HCl ER] 150 mg PO DAILY 05/07/16 [History] Alendronate Sodium [Fosamax] 70 mg PO QWEEK 10/30/16 [History] Cyanocobalamin (Vitamin B-12) [Vitamin B12] 1,000 mcg PO DAILY 10/30/16 [History ] Lovastatin 40 mg PO HS 10/30/16 [History] Melatonin 10 mg PO HS 10/30/16 [History] Metformin HCl [Glucophage] 1,000 mg PO QAM 10/30/16 [History] Metoprolol XL (24 HR) Succ [Toprol XL] 25 mg PO DAILY 10/30/16 [History] Sennosides/Docusate Sodium [Senna Plus] 1 each PO QPM PRN 10/30/16 [History] Allergies No Known Allergies Allergy (Verified 10/30/16 15:30) All Systems: A 10-system review of systems was performed and is negative for pertinent findings except as documented above in the HPI. Review of Systems: Patient admits intermittent confusion since a week ago, also occasional subjective fever/chills with dark-colored urine but denies slurred speech, facial droop, visual changes, headache, neck pain, tingling/numbness/weakness of upper/lower extremities or urinary/bowel incontinence. Physical Examination - Vital Signs Vital Signs: Initial Vital Signs Temp Pulse Resp BP Pulse Ox 98.3 F 70 16 170/90 96 10/30/16 15:27 10/30/16 15:27 10/30/16 15:27 10/30/16 15:27 10/30/16 15:27 - Constitutional General appearance: comfortable - Neurologic Sensorimotor examination: intact Detailed motor examination: grossly full strength in all extremities, full strength in all major muscle groups Motor examination - right side: 5/5: deltoids, biceps, triceps, wrist flexion, wrist extension, drier helper, hip flexors, quadriceps, plantarflexion Motor examination - left side: 5/5: deltoids, biceps, triceps, wrist flexion, wrist extension, hip flexors, drier helper, quadriceps, plantarflexion Detailed sensory examination: intact Reflex and gait examination: intact Reflexes: Biceps: 2+, Triceps: 2+, Brachioradialis: 2+, Patella: 2+, Achilles: 2 + Mental Status Examination: awake, alert, oriented to person, oriented to place, oriented to time, follows commands appropriately, answers questions appropriately, no agnosia, no aphasia, no aproxia Cranial nerve examination: PERRL, EOMI, visual johnson intact, sensory to face intact, mastication intact, no facial asymmetry is present, no dysarthria, hearing is intact symmetrically, soft palate elevates bilaterally upon phonation , tongue protrudes midline, no atrophy or facial fasiculations present Cerebellar examination: no dysmetria, no truncal ataxia, no difficulty with rapid alternating movements Results - Laboratory Findings CBC and BMP: 10/31/16 03:42 10/31/16 03:42 Abnormal lab findings: Abnormal lab results RBC 3.44 M/mcL (3.82-4.97) L 10/31/16 03:42 Hgb 10.6 g/dL (11.5-15.4) L 10/31/16 03:42 Hct 31.8 % (35.3-44.9) L 10/31/16 03:42 MPV 8.9 fL (9.4-12.4) L 10/31/16 03:42 ESR 29 mm/hr (0-15) H 10/31/16 03:42 VBG pCO2 56 mmHg (41-51) H 10/31/16 03:42 VBG HCO3 29.5 mEq/L (21-27) H 10/31/16 03:42 Creatinine 1.37 mg/dL (0.57-1.11) H 10/31/16 03:42 Est GFR ( Amer) 47 (> 60) L 10/31/16 03:42 Est GFR (Non-Af Amer) 39 (> 60) L 10/31/16 03:42 Glucose 103 mg/dL (70-99) H 10/31/16 03:42 Hemoglobin A1c 5.7 % (-5.6) H 10/30/16 21:23 Ammonia 13 mcmol/L (18-72) L 10/30/16 20:42 Globulin 4.6 g/dL (2.4-3.5) H 10/30/16 16:33 Albumin/Globulin Ratio 0.8 (1.1-2.2) L 10/30/16 16:33 Triglycerides 234 mg/dL (< 150) H 10/31/16 03:42 VLDL Cholesterol, Calc 47 mg/dL (< 31) H 10/31/16 03:42 HDL Cholesterol 39 mg/dL (40-59) L 10/31/16 03:42 Urine Clarity Cloudy (Clear) A 10/30/16 16:58 Urine Protein 30 mg/dL (Neg-Trace) H 10/30/16 16:58 Urine Glucose (UA) 100 mg/dL (Normal) H 10/30/16 16:58 Urine Bilirubin Small (Negative) H 10/30/16 16:58 Ur Leukocyte Esterase Small (Negative) H 10/30/16 16:58 Urine Microscopic RBC 3-5 per hpf (0-3) H 10/30/16 16:58 Urine Microscopic WBC 15-30 per hpf (0-3) H 10/30/16 16:58 Ur Squamous Epith Cells Many per lpf (None-Few) H 10/30/16 16:58 Urine Bacteria Moderate per hpf (None-Few) H 10/30/16 16:58 Ur Culture Indicated? YES (NO) A 10/30/16 16:58 Salicylates < 5.0 mg/dL (15-30) L 10/30/16 16:33 Acetaminophen < 1.0 mcg/mL (10-30) L 10/30/16 16:33 U Benzodiazepines Scrn Positive ng/mL (Jyieyy=[id number]) H 10/30/16 16:55 Consult Discharge Plan - Plan Referrals: Olvin Mcpherson MD [Primary Care Provider] - 11/06/16 2:15 pm
[2016-10-31] MEDS: Metoprolol XL (24 HR) Succ 25 MG TAB.ER.24H PO SCH (08:58)
[2016-10-31] MEDS: Thiamine (B-1) 100 MG TABLET PO SCH (08:58)
[2016-10-31] MEDS: Vitamin B Complex/Vit C/Vit E 1 EACH TABLET PO SCH (08:58)
[2016-10-31] MEDS: Folic Acid 1 MG TABLET PO SCH (08:58)
[2016-10-31] MEDS: Venlafaxine XR (24 HR) 75 MG CAP.ER.24H PO SCH (08:58)
[2016-10-31] MEDS: Nicotine 21 MG PATCH.TD24 TD SCH (09:02)
--- NOTE | 2016-10-31 15:48 | Internal Med Progress Note ---
Date of Encounter: 10/31/16 Time of Encounter: 09:10 - Assessment and plan (1) UTI (urinary tract infection) Current Visit: Yes Status: Acute Assessment and plan: Urine was positive for UTI with leukocyte esterase and moderate bacteria. Culture is pending. Patient is currently receiving Rocephin 1 g IV twice a day. She was recently treated with Cipro for a UTI. Sensitivity is pending. Continue IV hydration Continue IV antibiotics Monitor labs Monitor patient condition Monitor vital signs Qualifiers: Urinary tract infection type: site unspecified Qualified Code(s): N39.0 - Urinary tract infection, site not specified (2) Toxic metabolic encephalopathy Current Visit: Yes Status: Acute Assessment and plan: Patient reports history of intermittent confusion over the last week. She says that one week ago she awakened was having chills and shaking and could not get warm. She says she called her friend and asked her to take to the chiropractor, despite the fact that she did not have an appointment. They did work her in, she went home and repeatedly call the office for unknown reasons. Patient states she seemed to be fine after that. Primary care physician ordered an MRI due to the confusion. Patient was taken to have the MRI done yesterday and went to GI office instead and realized 5 minutes before the MRI that she was in the wrong place. She said while she was walking to the MRI she felt like she was twirling when she was walking. She says that she became disoriented at the MRI and eventually after being walked outside and could not get a ride home, she was brought to the emergency department. Most likely urinary tract infection was not cleared completely and confusion is due to continued infection. Continue to monitor. Ammonia 13, low Continue to monitor labs Continue IV antibiotics Continue IV fluids Urine culture and sensitivity pending (3) Delirium due to medical condition without behavioral disturbance Current Visit: Yes Status: Acute Assessment and plan: Plan as above (4) HTN (hypertension) Current Visit: Yes Status: Acute Assessment and plan: Chronic. Well-controlled during inpatient stay. Continue home medications. Qualifiers: Hypertension type: essential hypertension Qualified Code(s): I10 - Essential (primary) hypertension (5) HLD (hyperlipidemia) Current Visit: Yes Status: Acute Assessment and plan: Cholesterol 152, triglycerides 234. Continue statin. Qualifiers: Hyperlipidemia type: unspecified Qualified Code(s): E78.5 - Hyperlipidemia , unspecified (6) Pituitary adenoma Current Visit: Yes Status: Acute Assessment and plan: Chronic. Patient states that she has known about this for 6 years. MRI shows no acute intracranial abnormality, no acute infarct, global parenchymal volume loss with chronic microvascular ischemic change, and there appears to be unchanged prominence of the pituitary, which is likely related to the adenoma seen on prior exam in 2012. Stable. (7) DVT prophylaxis Current Visit: Yes Status: Acute Assessment and plan: BING pritchard. Patient is ambulatory, has bathroom privileges. - Time Spent With Patient less than 15 minutes - Subjective Interval history: Patient was seen about 910 this morning. She was alert and awake sitting up in bed with breakfast tray in front of her. She reports one week ago she awakened in the morning and was cold and shaking. She said she was very confused and had her friend take her to the chiropractor's office even though she did not have an appointment that day. They worked her in and she went home and states that she kept calling the chiropractor repeatedly that day. She has no idea why she kept calling them but she was aware of the fact that she was "being a pain". Patient states that she was fine after that and had no issues until yesterday when she came to the hospital believing that she had an appointment with Dr. Moreira, when she actually had an appointment for an MRI. She said when she was walking from GI office to MRI, she said she felt like she was twirling when she was walking. She says that she became disoriented while in the MRI. She says that the MRI staff walked her to her car and realized that she needed someone to come get her. She was unable to get a ride home in went to the emergency room instead. This morning she is alert and oriented 3, however, she does not seem appropriate. She does not answer questions appropriately and cannot stay on one subject. She is neurologically intact. I did ask neurology to see her today. - Constitutional Vitals: Temp Pulse Resp BP Pulse Ox 97.9 F 65 17 163/81 95 10/31/16 15:31 10/31/16 15:31 10/31/16 15:31 10/31/16 15:31 10/31/16 15:31 General appearance: Present: A&O X 3, pleasant, no acute distress. Absent: answers questions appropriately - Head Head exam: Present: normal inspection - Eye Eye exam: Present: normal appearance, PERRL, conjuntiva pink. Absent: nystagmus - ENT ENT exam: Present: mucous membranes moist, normal exam, normal external ear exam , normal oropharynx - Neck Neck exam general surgery: Present: lymphadenopathy. Absent: normal inspection , tenderness - Respiratory Respiratory exam: Absent: rales, rhonchi, stridor, wheezes - Cardiovascular Cardiovascular exam: Present: RRR, +S1, +S2. Absent: diastolic murmur, systolic murmur - GI/Abdominal GI/Abdominal exam: Present: normal bowel sounds, soft. Absent: distended, hepatomegaly, tenderness - Extremities Exam Extremities exam: Present: joint swelling, normal capillary refill, normal inspection, warm, radial pulses palpable and symetrical. Absent: pedal edema, tenderness - Neurological Exam Neurological exam: Present: alert, altered, oriented X3, no focal deficits, strengths equal and symetr throughout. Absent: motor sensory deficit, pronater drift, facial droop, speech deficit Internal Medicine: Result - Labs CBC & Chem 7: 10/31/16 03:42 10/31/16 03:42 Labs: Short CBC 10/31/16 Range/Units 03:42 WBC 7.8 (4.3-11.1) K/mcL Hgb 10.6 L (11.5-15.4) g/dL Hct 31.8 L (35.3-44.9) % Plt Count 330 (140-400) K/mcL Neutrophils # 3.5 (1.6-8.9) K/mcL BMP 10/31/16 03:42 Sodium 143 Potassium 4.3 Chloride 109 Carbon Dioxide 27 BUN 17 Creatinine 1.37 H Glucose 103 H Calcium 9.2 Cardiac Enzymes 10/30/16 10/31/16 10/31/16 Range/Units 21:23 03:42 10:18 Troponin I 0.00 0.00 0.00 (0-0.03) ng/mL - ABG Interpretation ABG results: PT/INR, D-dimer PT 10.9 Seconds (9.4-12.1) 10/30/16 16:33 Consult Discharge Plan - Plan Referrals: Olvin Mcpherson MD [Primary Care Provider] - 11/06/16 2:15 pm
--- NOTE | 2016-10-31 17:45 | Electrocardiograph Report ---
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
--- NOTE | 2016-10-31 20:32 | Carotid Imaging Report ---
Carotid Duplex Patient Name:Desiree Green Order Number:[id number] Procedure Date:10/31/2016 Date:1950Age:66 yrs Gender:Female Location:[facility] Room #: 3B23 Combination Machine Tender:Lena Miranda Referring MD:Jose Pacheco DO label rewinder:Gabrielle Hunter MD:Jose Oliveros MD Risk Factors Yes/No Hypertension Yes Diabetes Yes Hypercholesterolemia Yes Smoking Current Quit Hx of TIA Yes Impressions: The bilateral carotid arteries have minimal plaque throughout. Recommendations: After imaging the patient returned to their room. Findings Carotid Duplex: Right: The right proximal common carotid artery has a PSV of 62 cm/s and a EDV of 10 cm/s. The right mid common carotid artery has a PSV of 60 cm/s and a EDV of 16 cm/s. The right distal common carotid artery has a PSV of 45 cm/s and a EDV of 13 cm/s. There is nonstenotic plaque in the right bifurcation with a PSV of 33 cm/s and a EDV of 14 cm/s. There is smooth heterogeneous plaque. The right proximal internal carotid artery has a PSV of 45 cm/s and a EDV of 15 cm/s. The right mid internal carotid artery has a PSV of 50 cm/s and a EDV of 15 cm/s. The right distal internal carotid artery has a PSV of 114 cm/s and a EDV of 35 cm/s. There is nonstenotic plaque in the right eca with a PSV of 72 cm/s and a EDV of 10 cm/s. There is smooth heterogeneous plaque. The right vertebral artery has a PSV of 46 cm/s and a EDV of 16 cm/s. ICA distal velocities high possibly due to torturous artery. Left: The left proximal common carotid artery has a PSV of 60 cm/s and a EDV of 16 cm/s. The left mid common carotid artery has a PSV of 58 cm/s and a EDV of 15 cm/s. The left distal common carotid artery has a PSV of 66 cm/s and a EDV of 21 cm/s. The left bifurcation has a PSV of 56 cm/s and a EDV of 22 cm/s. There is nonstenotic plaque in the left proximal internal carotid artery with a PSV of 61 cm/s and a EDV of 25 cm/s. There is smooth heterogeneous plaque. The left mid internal carotid artery has a PSV of 91 cm/s and a EDV of 35 cm/s. The left distal internal carotid artery has a PSV of 97 cm/s and a EDV of 34 cm/s. The left eca has a PSV of 54 cm/s and a EDV of 9 cm/s. The left vertebral artery has a PSV of 38 cm/s and a EDV of 15 cm/s. Carotid Results Right PSV EDV Assessment Proximal CCA 62 10 Mid CCA 60 16 Distal CCA 45 13 Bifurcation 33 14 Proximal ICA 45 15 Mid ICA 50 15 Distal ICA 114 35 ECA 72 10 Vertebral Artery 46 16 Left PSV EDV Assessment Proximal CCA 60 16 Mid CCA 58 15 Distal CCA 66 21 Bifurcation 56 22 Proximal ICA 61 25 Mid ICA 91 35 Distal ICA 97 34 ECA 54 9 Vertebral Artery 38 15 Ratio's Right ICA/CCA Ratio: 1.90 ICA/CCA Values: 114/60 Left ICA/CCA Ratio: 1.70 ICA/CCA Values: 97/58 Updated by Jose Oliveros MD on 10/31/2016 8:25:45 PM electronically signed on 10/31/2016 8:26:54 PM with status of Final
[2016-10-31] MEDS: Melatonin 3 MG TABLET PO SCH (21:28)
[2016-10-31] MEDS: clonazePAM 1 MG TABLET PO SCH (21:28)
[2016-10-31] MEDS: Latanoprost 2.5 ML BOTTLE BOTH EYES SCH (21:29)
[2016-11-01 04:24] LABS: Basophils # 0.1 K/mcL (0.0-0.2); Basophils % 0.8 %; Eosinophils # 0.4 K/mcL (0.0-0.6); Eosinophils % 4.4 %; Hematocrit 32.6 % (35.3-44.9); Hemoglobin 11.1 g/dL (11.5-15.4); Immature Granulocytes % 0.4 % (0-4); Lymphocytes # 2.9 K/mcL (0.6-4.6); Lymphocytes % 37.1 %; Mean Corpuscular Hemoglobin 30.9 pg (28.0-33.3); Mean Corpuscular Volume 90.8 fL (83.0-100.0); Mean Platelet Volume 9.1 fL (9.4-12.4); Monocytes # 0.9 K/mcL (0.0-1.3); Neutrophils # 3.7 K/mcL (1.6-8.9); Platelet Count 338 K/mcL (140-400); Red Blood Count 3.59 M/mcL (3.82-4.97); Red Cell Distribution Width 12.5 % (11.5-14.5); Segmented Neutrophils % 46.3 %
[2016-11-01] MEDS: Ipratropium/Albuterol Neb 3 ML IH SCH ×2 (04:34→11:48)
[2016-11-01 04:38] LABS: Calcium 9.6 mg/dL (8.6-10.8); Potassium 3.8 mEq/L (3.5-4.5)
[2016-11-01] MEDS: Vitamin B Complex/Vit C/Vit E 1 EACH TABLET PO SCH (09:24)
[2016-11-01] MEDS: Metoprolol XL (24 HR) Succ 25 MG TAB.ER.24H PO SCH (09:24)
[2016-11-01] MEDS: Insulin LISPRO 300 UNITS/3 ML VIAL SQ SCH ×2 (09:24→11:47)
[2016-11-01] MEDS: Venlafaxine XR (24 HR) 75 MG CAP.ER.24H PO SCH (09:24)
[2016-11-01] MEDS: Folic Acid 1 MG TABLET PO SCH (09:25)
[2016-11-01] MEDS: Thiamine (B-1) 100 MG TABLET PO SCH (09:25)
[2016-11-01] MEDS: Nicotine 21 MG PATCH.TD24 TD SCH (09:25)
[2016-11-01 11:29] VITALS: BP 148/88
--- NOTE | 2016-11-01 11:45 | Discharge Summary ---
Date of Encounter: 11/01/16 Time of Encounter: 08:40 - Discharge Diagnosis (1) UTI (urinary tract infection) Priority: Primary Status: Acute Comments: On arrival patient's urine was suspicious for UTI. Small amount of leukocyte esterase, 3-5 white cells, 15-30 white blood cells, moderate bacteria, urine was cloudy, with a normal specific gravity of 1.023. Patient had been confused for at least a week. She denied any urinary symptoms. Yesterday when I saw patient, she still seemed a bit confused. Due to the confusion, I decided to keep her another day. She got another dose of IV Rocephin and IV fluids overnight and is greatly improved today. She seems much more clear and alert than she did yesterday. Her urine culture indicated no isolated pathogens, and her blood cultures were negative as well. She does not need antibiotics for home. Qualifiers: Urinary tract infection type: site unspecified Qualified Code(s): N39.0 - Urinary tract infection, site not specified (2) Toxic metabolic encephalopathy Priority: Secondary Status: Resolved Comments: Patient is alert and oriented today, much more clear and coherent than she was yesterday. (3) Delirium due to medical condition without behavioral disturbance Priority: Secondary Status: Resolved (4) HTN (hypertension) Priority: Secondary Status: Chronic Comments: Patient's last blood pressure was 140/80. She has had some slightly higher readings since admission. On multiple readings, her pulse has been in the 60s. For that reason, I do not want to increase her metoprolol. Patient states that she is supposed to be taking 5 mg of lisinopril every day, however, she has not in taking it since she read about side effects and she had every one of them. Due to her renal function I will not restart it, we did speak about her seeing her primary care physician for change in medication. Qualifiers: Hypertension type: essential hypertension Qualified Code(s): I10 - Essential (primary) hypertension (5) HLD (hyperlipidemia) Priority: Secondary Status: Chronic Comments: Continue home medications. Qualifiers: Hyperlipidemia type: unspecified Qualified Code(s): E78.5 - Hyperlipidemia , unspecified (6) Pituitary adenoma Priority: Secondary Status: Chronic (7) DVT prophylaxis Priority: Secondary Status: Acute Comments: Patient has been ambulatory. Low risk - Discharge Medications Home Medications: Gabapentin [Neurontin] 300 mg PO QID 12/18/15 [History] Latanoprost [Xalatan] 1 drop BOTH EYES HS 12/18/15 [History] ClonazePAM [Klonopin] 2 mg PO HS 05/07/16 [History] Venlafaxine HCl [Venlafaxine HCl ER] 150 mg PO DAILY 05/07/16 [History] Alendronate Sodium [Fosamax] 70 mg PO QWEEK 10/30/16 [History] Cyanocobalamin (Vitamin B-12) [Vitamin B12] 1,000 mcg PO DAILY 10/30/16 [History ] Lovastatin 40 mg PO HS 10/30/16 [History] Melatonin 10 mg PO HS 10/30/16 [History] Metformin HCl [Glucophage] 1,000 mg PO QAM 10/30/16 [History] Metoprolol XL (24 HR) Succ [Toprol XL] 25 mg PO DAILY 10/30/16 [History] Sennosides/Docusate Sodium [Senna Plus] 1 each PO QPM PRN 10/30/16 [History] Allergies/Adverse Reactions: Allergies No Known Allergies Allergy (Verified 10/30/16 15:30) Procedures/tests Complete & Pending: Procedures Performed prior 72 hours Category Date Time Status EV carotid duplex imaging BI Routine Y 10/31/16 11:19 Completed Date of admission: 10/30/16 18:05 Primary care physician: Olvin Mcpherson MD Consults: 10/30/16 18:28 Consult to Neurology [CONS] Routine Consulting Provider: Neurology [facility] Reason for Consult: encephalopathy Call Completed: Yes 10/30/16 20:33 Consult to Ehr Trainer [CONS] Routine Comment: 10/30/16 20:40 Consult to Occupational Therapy [CONS] Routine Comment: Evaluate, develop and implement POC Consult to Physical Therapy [CONS] Routine Comment: Evaluate, develop and implement POC 10/30/16 20:45 Consult to Nurse Navigator [CONS] Routine Comment: Discharging clinician: Taylor Kathleen Anticipated date of discharge: 11/01/16 - Patient Status Disposition: Home, Self-Care Condition: Good Functional capacity at discharge: independent ambulation Overall status at discharge: patient is back to baseline - Discharge Instructions Follow Up With: Olvin Mcpherson MD [Primary Care Provider] - 11/06/16 2:15 pm Additional Instructions: Please follow-up with her primary care physician within the next week. Please discuss your blood pressure readings and let her know that you have stopped taking her lisinopril. Make sure you are drinking plenty of fluids and staying hydrated. Return to the emergency department if you have any other problems or concerns, we are condition changes or worsens. - Diet and Activity Activity: resume usual activities as tolerated Diet: diabetic diet, low salt diet Interval History: Mrs. Green was admitted to the emergency department with increased confusion over the last week or so. She awakened one week prior to admission and reported having chills and shaking and could not get warm. She had a friend take her to the chiropractor on a daily that she did not even have an appointment. The next day she came to the hospital for an outpatient MRI, she was confused and ended up sitting in GI office. She finally did make it over to the MRI department, she states that she felt like she was twirling when she was walking. She completed the MRI and said that she became confused and MRI staff asked her to stay. She was admitted through the emergency department for confusion and UTI. Her MRI did not show any acute intracranial abnormality or infarct, it was global parenchymal volume loss with chronic microvascular ischemic change, and there appears to be an unchanged prominence of the pituitary which is most likely related to the adenoma. She says that she has known about the adenoma for 6 years and it has remained stable. Upon examination yesterday patient did not seem clear, did not seem to be able to answer questions appropriately, and was slow to respond. I kept her for another day of IV fluids and antibiotics and this morning she seems greatly improved. Her labs are within normal limits and her renal function seems to be improving. Creatinine is 1.21 today. There is no leukocytosis or fever. She has had hypertension since arrival. Discharge blood pressure was 140s over 80s. She takes 25 mg of beta pérez day. She was taking lisinopril 5 mg daily at home, however, she read about side effects and decided she had all of them and has not been taking her lisinopril. Her A1c is 5.7. I believe that I erroneously asked her to speak with her primary care physician about her elevated A1c. Patient is alert and oriented and has greatly improved since admission. She is stable for discharge Hospital course: Ms. Green is a 66 year old female - Time Spent with Patient Total time spent providing and/or coordinating discharge services: Less than 30 minutes - Constitutional Vitals: Temp Pulse Resp BP Pulse Ox 97.8 F 83 16 148/88 96 11/01/16 11:15 11/01/16 11:15 11/01/16 11:15 11/01/16 11:15 11/01/16 11:15 General appearance: Present: cooperative, A&O X 3, pleasant, no acute distress, answers questions appropriately - Head Head exam: Present: normal inspection - Eye Eye exam: Present: nystagmus. Absent: normal appearance, conjuntiva pink - ENT ENT exam: Present: mucous membranes moist, normal exam, normal external ear exam - Neck Neck exam general surgery: Present: normal inspection. Absent: lymphadenopathy , tenderness - Respiratory Respiratory exam: Present: decreased breath sounds, CTAB. Absent: respiratory distress, rhonchi, stridor, wheezes - Cardiovascular Cardiovascular exam: Present: RRR, +S1, +S2. Absent: diastolic murmur, systolic murmur - GI/Abdominal GI/Abdominal exam: Present: normal bowel sounds, soft. Absent: hepatomegaly, tenderness - Extremities Exam Extremities exam: Present: normal capillary refill, normal inspection, warm, radial pulses palpable and symetrical. Absent: pedal edema, tenderness - Neurological Exam Neurological exam: Present: alert, oriented X3, no focal deficits, strengths equal and symetr throughout. Absent: facial droop, speech deficit
== END 2016-11-01 13:41 | disposition home or self-care (01) ==
LOC: 3BNU 14:59 → EMEROO 14:59 → 3BNU 19:55
PROVIDERS: ADMIT Registered Nurse; ATTEND Registered Nurse

== ENCOUNTER 2020-03-01 17:25 | Inpatient (IN) ==
[2020-03-01] MEDS ORDERED: *HR* OxyCODONE/APAP 5/325 TABLET PO ONE (20:17)
[2020-03-01 21:20] LABS: Hematocrit 33.2 % (35.3-44.9); Hemoglobin 10.6 g/dL (11.5-15.4); Mean Corpuscular HGB Conc 31.9 g/dL (31.6-35.5); Mean Platelet Volume 8.9 fL (9.4-12.4); Platelet Count 333 K/mcL (140-400); Red Blood Count 3.65 M/mcL (3.82-4.97); Red Cell Distribution Width 12.9 % (11.5-14.5); White Blood Count 9.6 K/mcL (4.3-11.1)
[2020-03-01 21:23] LABS: Bilirubin,Urine Negative (Negative); Blood,Urine Negative (Negative); Clarity,Urine Clear (Clear); Color,Urine Light-Yellow (Yellow); Glucose,Urine (UA) Normal (Normal); Ketones,Urine Negative (Negative); Leukocyte Esterase,Urine Negative (Negative); Nitrite,Urine Negative (Negative); PH,Urine 6.5 pH Units (5.0-8.0); Protein,Urine Negative (Neg-Trace); Specific Gravity,Urine 1.007 (1.010-1.025); Urobilinogen,Urine Normal (Normal)
[2020-03-01 21:40] LABS: BUN/Creatinine Ratio 14 (6-26); Blood Urea Nitrogen 27 mg/dL (8-23); Calcium 10.5 mg/dL (8.6-10.3); Carbon Dioxide 27 mEq/L (23-29); Chloride 102 mEq/L (98-107); Glucose 93 mg/dL (70-105); Osmolality,Calculated 289 (280-300); Potassium 4.1 mEq/L (3.5-5.1); Sodium 137 mEq/L (136-145); eGFR For African Americans 30 (> 60); eGFR For Non-African Americans 25 (> 60)
[2020-03-01 21:41] LABS: Troponin I < 0.03 ng/mL (< 0.04)
[2020-03-01] MEDS ORDERED: *HR* FentaNYL (PF) 100 MCG/2 ML VIAL IVP ONE (21:44)
[2020-03-01] MEDS ORDERED: Ondansetron 4 MG/2 ML VIAL IVP ONE (21:44)
[2020-03-02] MEDS ORDERED: tiZANidine 4 MG TABLET PO PRN ×2 (03:12→20:07)
[2020-03-02] MEDS ORDERED: Dextrose Gel 15 GM/37.5 ML TUBE PO PRN ×4 (03:16→20:07)
[2020-03-02] MEDS ORDERED: *HR* Dextrose 50 % in Water (Vial) 50 ML VIAL IVP PRN ×2 (03:16→20:07)
[2020-03-02] MEDS ORDERED: D5% in Water 1,000 ML IVC PRN ×2 (03:16→20:07)
[2020-03-02] MEDS ORDERED: Perflutren Lipid Microsphere 1.3 ML in 0.9 % Sodium Chloride 8.7 ML IVP PRN ×2 (03:19→20:07)
[2020-03-02] MEDS ORDERED: Acetaminophen 325 MG TABLET PO PRN ×2 (03:33→20:07)
[2020-03-02] MEDS ORDERED: Naloxone 0.4 MG/ML INJ IVP PRN ×2 (03:33→20:07)
[2020-03-02] MEDS: *HR* HYDROcodone/Acet 5/325 mg TABLET PO PRN ×2 (04:30→10:54)
[2020-03-02 05:19] LABS: Prothrombin Time 11.7 Seconds (9.4-12.1)
[2020-03-02 05:20] LABS: Hematocrit 30.9 % (35.3-44.9); Hemoglobin 9.9 g/dL (11.5-15.4); Mean Corpuscular Hemoglobin 29.3 pg (28.0-33.3); Mean Corpuscular Volume 91.4 fL (83.0-100.0); Mean Platelet Volume 8.9 fL (9.4-12.4); Platelet Count 305 K/mcL (140-400); Red Blood Count 3.38 M/mcL (3.82-4.97); Red Cell Distribution Width 13.1 % (11.5-14.5); White Blood Count 7.7 K/mcL (4.3-11.1)
[2020-03-02] MEDS: Insulin LISPRO 300 UNITS/3 ML VIAL SQ SCH ×3 (05:46→19:51)
[2020-03-02 06:05] LABS: Calcium 9.9 mg/dL (8.6-10.3); Magnesium 1.8 mg/dL (1.6-2.6); Phosphorous 3.9 mg/dL (2.7-4.5); Potassium 4.2 mEq/L (3.5-5.1)
[2020-03-02] MEDS: *HR* OxyCODONE Immed Rel 5 MG TABLET PO PRN ×2 (06:34→15:26)
[2020-03-02 08:24] LABS: Estimated Average Glucose 151 mg/dl
[2020-03-02 12:16] LABS: Thyroid Stimulating Hormone 0.853 mcIU/mL (0.340-5.600)
[2020-03-02 12:51] LABS: Folate > 22.3 ng/mL (3.0-16.0); Vitamin B12 841 pg/mL (250-1100)
[2020-03-02] MEDS ORDERED: Ondansetron 4 MG/2 ML VIAL ONE (16:42)
[2020-03-02] MEDS ORDERED: Lidocaine -MPF 2% 2 ML VIAL ONE (16:42)
[2020-03-02] MEDS ORDERED: *HR* FentaNYL (PF) 100 MCG/2 ML VIAL ONE ×2 (16:42→18:15)
[2020-03-02] MEDS ORDERED: *HR* Propofol 200 MG/20 ML VIAL IVP ONE (16:42)
[2020-03-02] MEDS ORDERED: *HR* Promethazine 25 MG/ML VIAL IVP PRN ×2 (17:30→20:07)
[2020-03-02] MEDS ORDERED: Ondansetron 4 MG/2 ML VIAL IVP ONE ×2 (17:30→20:07)
[2020-03-02] MEDS ORDERED: *HR* OxyCODONE Immed Rel 5 MG TABLET PO PRN ×2 (17:30→20:07)
[2020-03-02] MEDS ORDERED: *HR* HYDROmorphone PF 0.5 MG/0.5 ML SYRINGE IVP PRN ×2 (17:30→20:07)
[2020-03-02] MEDS ORDERED: Ropivacaine/PF 0.5% 30 ML VIAL ONE (17:41)
[2020-03-02] MEDS ORDERED: Bupivacaine/EPI 1:200k 0.25%PF 30 ML VIAL ONE (17:46)
[2020-03-02] MEDS ORDERED: CeFAZolin Syr 2,000MG/20 ML 2,000 MG/20 ML SYRINGE IVPB ONE (17:51)
[2020-03-02] MEDS ORDERED: *HR* Labetalol 20 MG/4 ML SYRINGE IVP ONE (19:22)
[2020-03-02] MEDS ORDERED: *HR* HYDROcodone/Acet 5/325 mg TABLET PO PRN (20:07)
[2020-03-02] MEDS ORDERED: Latanoprost 2.5 ML BOTTLE BOTH EYES SCH (21:00)
[2020-03-02] MEDS ORDERED: Pregabalin 75 MG CAPSULE PO SCH (21:00)
[2020-03-02] MEDS ORDERED: lisinopriL 20 MG TABLET PO SCH (21:00)
[2020-03-02] MEDS ORDERED: Insulin LISPRO 300 UNITS/3 ML VIAL SQ SCH (21:00)
[2020-03-02] MEDS: Pregabalin 75 MG CAPSULE PO SCH (23:59)
[2020-03-02] MEDS: ceFAZolin 2,000 MG in 0.9 % Sodium Chloride 100 ML IVPB SCH (23:59)
[2020-03-03] MEDS ORDERED: CeFAZolin 2 GM/120 ML BAG IVPB SCH
[2020-03-03 01:29] LABS: Basophils % 0.5 %; Eosinophils % 0.3 %; Hematocrit 30.2 % (35.3-44.9); Hemoglobin 9.9 g/dL (11.5-15.4); Immature Granulocytes % 0.6 % (0-4); Lymphocytes # 0.6 K/mcL (0.6-4.6); Lymphocytes % 9.5 %; Mean Corpuscular HGB Conc 32.8 g/dL (31.6-35.5); Mean Corpuscular Hemoglobin 29.9 pg (28.0-33.3); Mean Corpuscular Volume 91.2 fL (83.0-100.0); Mean Platelet Volume 9.2 fL (9.4-12.4); Monocytes # 0.1 K/mcL (0.0-1.3); Monocytes % 1.4 %; Neutrophils # 5.7 K/mcL (1.6-8.9); Platelet Count 295 K/mcL (140-400); Red Blood Count 3.31 M/mcL (3.82-4.97); Red Cell Distribution Width 12.6 % (11.5-14.5); Segmented Neutrophils % 87.7 %; White Blood Count 6.5 K/mcL (4.3-11.1)
[2020-03-03 01:41] LABS: Albumin 3.5 g/dL (3.5-5.7); Albumin/Globulin Ratio 1.2 (1.1-2.2); Bilirubin,Total 0.5 mg/dL (0.3-1.0); Calcium 9.1 mg/dL (8.6-10.3); Globulin 2.9 g/dL (2.4-3.5); Potassium 4.6 mEq/L (3.5-5.1); Total Protein 6.4 g/dL (6.4-8.9)
[2020-03-03 01:42] LABS: Potassium 4.5 mEq/L (3.5-5.1)
[2020-03-03] MEDS: Latanoprost 2.5 ML BOTTLE BOTH EYES SCH ×2 (02:00→20:28)
[2020-03-03] MEDS ORDERED: Insulin LISPRO 300 UNITS/3 ML VIAL SQ SCH ×2 (07:30)
[2020-03-03] MEDS: Insulin LISPRO 300 UNITS/3 ML VIAL SQ SCH ×4 (07:54→20:26)
[2020-03-03] MEDS ORDERED: Bismuth Subsalicylate 120 ML ORAL SUSPENSION PO PRN (08:10)
[2020-03-03] MEDS: ceFAZolin 2,000 MG in 0.9 % Sodium Chloride 100 ML IVPB SCH (08:14)
[2020-03-03] MEDS ORDERED: *HR* Glimepiride 2 MG TABLET PO SCH (09:00)
[2020-03-03] MEDS ORDERED: amLODIPine 5 MG TABLET PO SCH (09:00)
[2020-03-03] MEDS ORDERED: Metoprolol XL (24 HR) Succ 50 MG TAB.ER.24H PO SCH (09:00)
[2020-03-03] MEDS ORDERED: calcitrioL 0.25 MCG CAPSULE PO SCH (09:00)
[2020-03-03] MEDS ORDERED: Venlafaxine XR (24 HR) 75 MG CAP.ER.24H PO SCH (09:00)
[2020-03-03] MEDS: Metoprolol XL (24 HR) Succ 50 MG TAB.ER.24H PO SCH (11:35)
[2020-03-03] MEDS: amLODIPine 5 MG TABLET PO SCH (11:35)
[2020-03-03] MEDS: calcitrioL 0.25 MCG CAPSULE PO SCH (11:36)
[2020-03-03] MEDS: Venlafaxine XR (24 HR) 75 MG CAP.ER.24H PO SCH (11:36)
[2020-03-03] MEDS: Pregabalin 75 MG CAPSULE PO SCH ×2 (11:36→20:27)
[2020-03-03] MEDS: Acetaminophen IV 1,000 MG/100 ML INFUS..BTL IVPB SCH ×2 (17:05→23:32)
[2020-03-03] MEDS: *HR* Heparin 5,000 UNIT/ML VIAL SQ SCH (20:25)
[2020-03-04] MEDS: Acetaminophen IV 1,000 MG/100 ML INFUS..BTL IVPB SCH ×3 (05:27→17:13)
[2020-03-04] MEDS: *HR* Heparin 5,000 UNIT/ML VIAL SQ SCH ×2 (05:28→17:12)
[2020-03-04] MEDS: Insulin LISPRO 300 UNITS/3 ML VIAL SQ SCH ×4 (08:44→21:18)
[2020-03-04 08:45] LABS: Basophils % 0.5 %; Eosinophils # 0.2 K/mcL (0.0-0.6); Eosinophils % 1.9 %; Hematocrit 29.9 % (35.3-44.9); Hemoglobin 9.8 g/dL (11.5-15.4); Immature Granulocytes % 0.4 % (0-4); Lymphocytes # 1.9 K/mcL (0.6-4.6); Mean Corpuscular HGB Conc 32.8 g/dL (31.6-35.5); Mean Corpuscular Hemoglobin 30.5 pg (28.0-33.3); Mean Corpuscular Volume 93.1 fL (83.0-100.0); Mean Platelet Volume 9.5 fL (9.4-12.4); Monocytes % 12.1 %; Neutrophils # 5.2 K/mcL (1.6-8.9); Platelet Count 276 K/mcL (140-400); Red Blood Count 3.21 M/mcL (3.82-4.97); Segmented Neutrophils % 62.1 %; White Blood Count 8.4 K/mcL (4.3-11.1)
[2020-03-04 09:00] LABS: Calcium 9.8 mg/dL (8.6-10.3); Potassium 4.4 mEq/L (3.5-5.1)
[2020-03-04] MEDS: Metoprolol XL (24 HR) Succ 50 MG TAB.ER.24H PO SCH (09:36)
[2020-03-04] MEDS: Pregabalin 75 MG CAPSULE PO SCH ×2 (09:36→20:29)
[2020-03-04] MEDS: Venlafaxine XR (24 HR) 75 MG CAP.ER.24H PO SCH (09:37)
[2020-03-04] MEDS: amLODIPine 5 MG TABLET PO SCH (09:37)
[2020-03-04] MEDS: calcitrioL 0.25 MCG CAPSULE PO SCH (09:37)
[2020-03-04] MEDS: Latanoprost 2.5 ML BOTTLE BOTH EYES SCH (20:29)
[2020-03-05] MEDS: Acetaminophen IV 1,000 MG/100 ML INFUS..BTL IVPB SCH ×3 (00:24→11:24)
[2020-03-05 05:10] LABS: Basophils % 0.5 %; Eosinophils # 0.3 K/mcL (0.0-0.6); Eosinophils % 4.2 %; Hematocrit 30.9 % (35.3-44.9); Hemoglobin 9.6 g/dL (11.5-15.4); Immature Granulocytes % 0.3 % (0-4); Lymphocytes # 1.8 K/mcL (0.6-4.6); Lymphocytes % 24.2 %; Mean Corpuscular HGB Conc 31.1 g/dL (31.6-35.5); Mean Corpuscular Hemoglobin 29.2 pg (28.0-33.3); Mean Corpuscular Volume 93.9 fL (83.0-100.0); Mean Platelet Volume 9.1 fL (9.4-12.4); Monocytes # 0.8 K/mcL (0.0-1.3); Monocytes % 11.1 %; Neutrophils # 4.5 K/mcL (1.6-8.9); Platelet Count 308 K/mcL (140-400); Red Blood Count 3.29 M/mcL (3.82-4.97); Red Cell Distribution Width 12.8 % (11.5-14.5); Segmented Neutrophils % 59.7 %; White Blood Count 7.6 K/mcL (4.3-11.1)
[2020-03-05] MEDS: *HR* Heparin 5,000 UNIT/ML VIAL SQ SCH (05:25)
[2020-03-05 05:31] LABS: Calcium 9.7 mg/dL (8.6-10.3); Potassium 4.4 mEq/L (3.5-5.1)
[2020-03-05] MEDS: Insulin LISPRO 300 UNITS/3 ML VIAL SQ SCH ×3 (07:26→17:18)
[2020-03-05] MEDS: Metoprolol XL (24 HR) Succ 50 MG TAB.ER.24H PO SCH (09:51)
[2020-03-05] MEDS: Pregabalin 75 MG CAPSULE PO SCH (09:51)
[2020-03-05] MEDS: calcitrioL 0.25 MCG CAPSULE PO SCH (09:51)
[2020-03-05] MEDS: amLODIPine 5 MG TABLET PO SCH (09:51)
[2020-03-05] MEDS: Venlafaxine XR (24 HR) 75 MG CAP.ER.24H PO SCH (09:51)
[2020-03-05] MEDS ORDERED: Acetaminophen 325 MG TABLET PO PRN (13:34)
[2020-03-05 15:32] VITALS: BP 149/73
== END 2020-03-05 18:30 | DRG 493 ==
LOC: EMEROOARM 17:25 → 3NENU 17:25 → SUATTDRO 22:39 → 3NENU 22:46
PROVIDERS: ADMIT Internal Medicine; ATTEND Internal Medicine

== ENCOUNTER 2020-07-17 17:24 | Inpatient (IN) ==
[2020-07-17 18:54] LABS: Basophils # 0.1 K/mcL (0.0-0.2); Basophils % 0.7 %; Eosinophils # 0.2 K/mcL (0.0-0.6); Eosinophils % 1.8 %; Hematocrit 36.2 % (35.3-44.9); Hemoglobin 11.2 g/dL (11.5-15.4); Immature Granulocytes % 1.2 % (0-4); Lymphocytes # 1.8 K/mcL (0.6-4.6); Lymphocytes % 18.2 %; Mean Corpuscular HGB Conc 30.9 g/dL (31.6-35.5); Mean Corpuscular Hemoglobin 27.3 pg (28.0-33.3); Mean Corpuscular Volume 88.3 fL (83.0-100.0); Mean Platelet Volume 8.6 fL (9.4-12.4); Monocytes # 0.8 K/mcL (0.0-1.3); Monocytes % 7.6 %; Neutrophils # 7.1 K/mcL (1.6-8.9); Platelet Count 462 K/mcL (140-400); Red Cell Distribution Width 12.8 % (11.5-14.5); Segmented Neutrophils % 70.5 %
[2020-07-17 19:20] LABS: Alanine Aminotransferase 14 Units/L (7-52); Albumin/Globulin Ratio 1.2 (1.1-2.2); Alkaline Phosphatase 154 Units/L (34-104); Aspartate Amino Transferase 18 Units/L (13-39); BUN/Creatinine Ratio 15 (6-26); Bilirubin,Total 0.5 mg/dL (0.3-1.0); Blood Urea Nitrogen 26 mg/dL (8-23); Calcium 10.3 mg/dL (8.6-10.3); Carbon Dioxide 23 mEq/L (23-29); Chloride 103 mEq/L (98-107); Globulin 3.3 g/dL (2.4-3.5); Glucose 122 mg/dL (70-105); Osmolality,Calculated 290 (280-300); Potassium 4.4 mEq/L (3.5-5.1); Sodium 137 mEq/L (136-145); Total Protein 7.3 g/dL (6.4-8.9); eGFR For African Americans 34 (> 60); eGFR For Non-African Americans 28 (> 60)
[2020-07-17 19:21] LABS: Troponin I < 0.03 ng/mL (< 0.04)
[2020-07-17 20:20] LABS: Bacteria,Urine Few per hpf (None-Few); Bilirubin,Urine Negative (Negative); Blood,Urine Trace (Negative); Clarity,Urine Clear (Clear); Color,Urine Yellow (Yellow); Glucose,Urine (UA) Normal (Normal); Hyaline Casts,Urine Few per lpf (None Seen); Ketones,Urine Negative (Negative); Leukocyte Esterase,Urine Negative (Negative); Mucus,Urine Few per lpf (None-Few); Nitrite,Urine Negative (Negative); PH,Urine 5.5 pH Units (5.0-8.0); Protein,Urine 30 mg/dL (Neg-Trace); RBC,Urine 0-3 per hpf (0-3); Specific Gravity,Urine 1.024 (1.010-1.025); Squamous Epithelial Cell,Urine Few per hpf (None-Few); WBC,Urine 0-3 per hpf (0-3)
[2020-07-17] MEDS ORDERED: D5% in Water 1,000 ML IVC PRN (23:28)
[2020-07-17] MEDS ORDERED: Dextrose Gel 15 GM/37.5 ML TUBE PO PRN ×2 (23:28)
[2020-07-17] MEDS ORDERED: *HR* Dextrose 50 % in Water (Vial) 50 ML VIAL IVP PRN (23:28)
[2020-07-17] MEDS ORDERED: Naloxone 0.4 MG/ML INJ IVP PRN (23:34)
[2020-07-17] MEDS ORDERED: Acetaminophen 325 MG TABLET PO PRN (23:34)
[2020-07-18] MEDS: Aspirin Enteric Coated 81 MG Tablet PO SCH ×2 (00:39→08:54)
[2020-07-18] MEDS: 0.9 % Sodium Chloride 1,000 ML IVC SCH ×2 (00:40→13:05)
[2020-07-18] MEDS: Insulin LISPRO 300 UNITS/3 ML VIAL SUBQ SCH ×5 (00:43→20:37)
[2020-07-18 01:19] LABS: Hematocrit 33.3 % (35.3-44.9); Hemoglobin 10.4 g/dL (11.5-15.4); Mean Corpuscular HGB Conc 31.2 g/dL (31.6-35.5); Mean Corpuscular Hemoglobin 27.8 pg (28.0-33.3); Mean Platelet Volume 8.5 fL (9.4-12.4); Platelet Count 410 K/mcL (140-400); Red Blood Count 3.74 M/mcL (3.82-4.97); Red Cell Distribution Width 12.9 % (11.5-14.5); White Blood Count 9.4 K/mcL (4.3-11.1)
[2020-07-18 01:38] LABS: Calcium 9.6 mg/dL (8.6-10.3); Chol/HDL Ratio 3.5 (0-4.9); Phosphorous 4.1 mg/dL (2.7-4.5); Potassium 3.9 mEq/L (3.5-5.1)
[2020-07-18 01:39] LABS: % Iron Saturation 19 % (15-50); Iron 64 mcg/dL (50-170); Transferrin 246 mg/dL (203-362)
[2020-07-18 01:58] LABS: Ferritin 34 ng/mL (10-120)
[2020-07-18 04:15] LABS: Estimated Average Glucose 169 mg/dl; Hemoglobin A1C 7.5 %
[2020-07-19 03:27] LABS: Basophils # 0.1 K/mcL (0.0-0.2); Basophils % 0.8 %; Eosinophils # 0.4 K/mcL (0.0-0.6); Eosinophils % 4.9 %; Hematocrit 35.1 % (35.3-44.9); Hemoglobin 11.1 g/dL (11.5-15.4); Immature Granulocytes % 0.7 % (0-4); Lymphocytes # 1.8 K/mcL (0.6-4.6); Lymphocytes % 24.9 %; Mean Corpuscular HGB Conc 31.6 g/dL (31.6-35.5); Mean Corpuscular Volume 88.4 fL (83.0-100.0); Mean Platelet Volume 8.5 fL (9.4-12.4); Monocytes # 0.7 K/mcL (0.0-1.3); Monocytes % 9.5 %; Neutrophils # 4.2 K/mcL (1.6-8.9); Platelet Count 389 K/mcL (140-400); Red Blood Count 3.97 M/mcL (3.82-4.97); Segmented Neutrophils % 59.2 %; White Blood Count 7.1 K/mcL (4.3-11.1)
[2020-07-19 03:41] LABS: Potassium 4.7 mEq/L (3.5-5.1)
[2020-07-19] MEDS: Metoprolol XL (24 HR) Succ 25 MG TAB.ER.24H PO SCH (08:45)
[2020-07-19] MEDS: Aspirin Enteric Coated 81 MG Tablet PO SCH (08:45)
[2020-07-19] MEDS: Insulin LISPRO 300 UNITS/3 ML VIAL SUBQ SCH ×4 (08:45→20:40)
[2020-07-19] MEDS ORDERED: hydrOXYzine pamoate 25 MG CAPSULE PO ONE (17:19)
[2020-07-19] MEDS ORDERED: 0.9 % Sodium Chloride 1,000 ML IVC SCH (19:15)
[2020-07-20 01:30] LABS: Basophils # 0.1 K/mcL (0.0-0.2); Basophils % 0.7 %; Eosinophils # 0.4 K/mcL (0.0-0.6); Eosinophils % 4.9 %; Hematocrit 33.2 % (35.3-44.9); Hemoglobin 10.5 g/dL (11.5-15.4); Immature Granulocytes % 0.5 % (0-4); Lymphocytes # 2.2 K/mcL (0.6-4.6); Lymphocytes % 26.7 %; Mean Corpuscular HGB Conc 31.6 g/dL (31.6-35.5); Mean Corpuscular Hemoglobin 27.9 pg (28.0-33.3); Mean Corpuscular Volume 88.3 fL (83.0-100.0); Mean Platelet Volume 8.5 fL (9.4-12.4); Monocytes # 0.9 K/mcL (0.0-1.3); Monocytes % 10.4 %; Neutrophils # 4.7 K/mcL (1.6-8.9); Platelet Count 380 K/mcL (140-400); Red Blood Count 3.76 M/mcL (3.82-4.97); Segmented Neutrophils % 56.8 %; White Blood Count 8.3 K/mcL (4.3-11.1)
[2020-07-20 01:46] LABS: Calcium 9.9 mg/dL (8.6-10.3)
[2020-07-20] MEDS: Aspirin Enteric Coated 81 MG Tablet PO SCH (08:22)
[2020-07-20] MEDS: Metoprolol XL (24 HR) Succ 25 MG TAB.ER.24H PO SCH (08:22)
[2020-07-20] MEDS: Insulin LISPRO 300 UNITS/3 ML VIAL SUBQ SCH ×4 (08:23→20:12)
[2020-07-21] MEDS: Aspirin Enteric Coated 81 MG Tablet PO SCH (08:27)
[2020-07-21] MEDS: Metoprolol XL (24 HR) Succ 25 MG TAB.ER.24H PO SCH (08:27)
[2020-07-21] MEDS: Insulin LISPRO 300 UNITS/3 ML VIAL SUBQ SCH ×4 (08:28→21:07)
[2020-07-21 11:30] LABS: Calcium 9.8 mg/dL (8.6-10.3); Potassium 4.1 mEq/L (3.5-5.1)
[2020-07-21 12:07] LABS: Hematocrit 35.4 % (35.3-44.9); Hemoglobin 11.1 g/dL (11.5-15.4); Mean Corpuscular HGB Conc 31.4 g/dL (31.6-35.5); Mean Corpuscular Hemoglobin 28.2 pg (28.0-33.3); Mean Corpuscular Volume 89.8 fL (83.0-100.0); Mean Platelet Volume 8.7 fL (9.4-12.4); Platelet Count 409 K/mcL (140-400); Red Blood Count 3.94 M/mcL (3.82-4.97); Red Cell Distribution Width 12.8 % (11.5-14.5); White Blood Count 7.6 K/mcL (4.3-11.1)
[2020-07-21] MEDS: Melatonin 3 MG TABLET PO PRN (21:58)
[2020-07-21] MEDS: hydrOXYzine pamoate 25 MG CAPSULE PO PRN (21:59)
[2020-07-22] MEDS: Insulin LISPRO 300 UNITS/3 ML VIAL SUBQ SCH ×4 (08:04→21:17)
[2020-07-22] MEDS: Metoprolol XL (24 HR) Succ 25 MG TAB.ER.24H PO SCH (08:05)
[2020-07-22] MEDS: Aspirin Enteric Coated 81 MG Tablet PO SCH (08:05)
[2020-07-22] MEDS: Melatonin 3 MG TABLET PO PRN (21:15)
[2020-07-22] MEDS: hydrOXYzine pamoate 25 MG CAPSULE PO PRN (21:15)
[2020-07-23] MEDS: Metoprolol XL (24 HR) Succ 25 MG TAB.ER.24H PO SCH (08:59)
[2020-07-23] MEDS: Insulin LISPRO 300 UNITS/3 ML VIAL SUBQ SCH ×3 (08:59→17:03)
[2020-07-23] MEDS: Aspirin Enteric Coated 81 MG Tablet PO SCH (08:59)
[2020-07-23 16:01] LABS: Adenovirus Not Detected (Not Detect); Bordetella Pertussis Not Detected (Not Detect); Chlamydophila pneumoniae Not Detected (Not Detect); Coronavirus 229E Not Detected (Not Detect); Coronavirus HKU1 Not Detected (Not Detect); Coronavirus NL63 Not Detected (Not Detect); Coronavirus OC43 Not Detected (Not Detect); Human Metapneumovirus Not Detected (Not Detect); Human Rhinovirus/Enterovirus Not Detected (Not Detect); Influenza A Subtype 2009 H1 Not Detected (Not Detect); Influenza B Not Detected (Not Detect); Mycoplasma pneumoniae Not Detected (Not Detect); Parainfluenza Virus 1 Not Detected (Not Detect); Parainfluenza Virus 2 Not Detected (Not Detect); Parainfluenza Virus 3 Not Detected (Not Detect); Parainfluenza Virus 4 Not Detected (Not Detect); Respiratory Syncytial Virus Not Detected (Not Detect); SARS-CoV-2 Not Detected (Not Detect)
[2020-07-23] MEDS: hydrOXYzine pamoate 25 MG CAPSULE PO PRN (22:06)
[2020-07-23] MEDS: Melatonin 3 MG TABLET PO PRN (22:06)
[2020-07-24] MEDS: Insulin LISPRO 300 UNITS/3 ML VIAL SUBQ SCH ×3 (05:45→12:13)
[2020-07-24] MEDS: Metoprolol XL (24 HR) Succ 25 MG TAB.ER.24H PO SCH (08:40)
[2020-07-24] MEDS: Aspirin Enteric Coated 81 MG Tablet PO SCH (08:40)
[2020-07-24 11:31] VITALS: BP 112/79
[2020-07-24] MEDS ORDERED: Latanoprost 2.5 ML BOTTLE BOTH EYES SCH (21:00)
== END 2020-07-24 15:22 | disposition home health service (06) | DRG 312 ==
LOC: 3BNU 17:24 → EMEROOARM 17:24 → 3BNU 07-18 00:17
PROVIDERS: ADMIT Internal Medicine; ATTEND Internal Medicine

== ENCOUNTER 2021-08-25 16:42 | Inpatient (IN) ==
[2021-08-25 17:31] LABS: Bacteria,Urine Few per hpf (None-Few); Basophils # 0.1 K/mcL (0.0-0.2); Basophils % 0.4 %; Bilirubin,Urine Negative (Negative); Blood,Urine Negative (Negative); Clarity,Urine Clear (Clear); Color,Urine Yellow (Yellow); Glucose,Urine (UA) Normal (Normal); Hematocrit 38.6 % (35.3-44.9); Hemoglobin 11.9 g/dL (11.5-15.4); Immature Granulocytes % 0.9 % (0-4); Ketones,Urine Negative (Negative); Leukocyte Esterase,Urine Small (Negative); Lymphocytes # 1.2 K/mcL (0.6-4.6); Lymphocytes % 7.3 %; Mean Corpuscular HGB Conc 30.8 g/dL (31.6-35.5); Mean Corpuscular Hemoglobin 28.5 pg (28.0-33.3); Mean Corpuscular Volume 92.3 fL (83.0-100.0); Mean Platelet Volume 9.4 fL (9.4-12.4); Monocytes # 1.7 K/mcL (0.0-1.3); Monocytes % 10.9 %; Mucus,Urine Few per lpf (None-Few); Neutrophils # 12.9 K/mcL (1.6-8.9); Nitrite,Urine Negative (Negative); PH,Urine 5.5 pH Units (5.0-8.0); Platelet Count 424 K/mcL (140-400); Protein,Urine 30 mg/dL (Neg-Trace); RBC,Urine 0-3 per hpf (0-3); Red Blood Count 4.18 M/mcL (3.82-4.97); Red Cell Distribution Width 14.3 % (11.5-14.5); Segmented Neutrophils % 80.5 %; Specific Gravity,Urine 1.016 (1.010-1.025); Urobilinogen,Urine Normal (Normal); WBC,Urine 30-50 per hpf (0-3)
[2021-08-25 17:41] LABS: Amphetamine Screen,Urine Negative ng/mL (Cutoff=1000); Barbiturate Screen,Urine Negative ng/mL (Cutoff=200); Benzodiazepines Screen,Urine Negative ng/mL (Cutoff=200); Cannabinoid Screen,Urine Negative ng/mL (Cutoff = 50); Cocaine Screen,Urine Negative ng/mL (Cutoff= 300); Opiate Screen,Urine Negative ng/mL (Cutoff=300); Phencyclidine Screen,Urine Negative ng/mL (Cutoff=25)
[2021-08-25] MEDS ORDERED: 0.9 % Sodium Chloride 1,000 ML IVC ONE ×2 (17:43→22:11)
[2021-08-25 17:53] LABS: Alanine Aminotransferase 17 Units/L (7-52); Albumin 3.9 g/dL (3.5-5.7); Albumin/Globulin Ratio 1.1 (1.1-2.2); Alkaline Phosphatase 165 Units/L (34-104); Aspartate Amino Transferase 31 Units/L (13-39); BUN/Creatinine Ratio 45 (6-26); Bilirubin,Direct 0.2 mg/dL (0.0-0.2); Bilirubin,Indirect 0.4 mg/dL (0.0-1.0); Bilirubin,Total 0.6 mg/dL (0.3-1.0); Blood Urea Nitrogen 118 mg/dL (8-23); Calcium 10.6 mg/dL (8.6-10.3); Carbon Dioxide 18 mEq/L (23-29); Chloride 106 mEq/L (98-107); Creatine Kinase 865 Units/L (30-223); Ethanol < 10 mg/dL (Less than 10); Globulin 3.6 g/dL (2.4-3.5); Glucose 168 mg/dL (70-105); Osmolality,Calculated 333 (280-300); Potassium 3.9 mEq/L (3.5-5.1); Sodium 141 mEq/L (136-145); Total Protein 7.5 g/dL (6.4-8.9); eGFR For African Americans 22 (> 60); eGFR For Non-African Americans 18 (> 60)
[2021-08-25 17:54] LABS: Troponin I 0.03 ng/mL (< 0.04)
[2021-08-25] MEDS ORDERED: cefTRIAXone 1,000 MG in 0.9 % Sodium Chloride Mini Bag 100 ML IVPB STA (18:01)
[2021-08-25] MEDS ORDERED: Ondansetron 4 MG/2 ML VIAL IVP ONE (19:07)
[2021-08-25] MEDS ORDERED: *HR* FentaNYL (PF) 100 MCG/2 ML VIAL IVP STA (19:08)
[2021-08-25] MEDS ORDERED: Naloxone 0.4 MG/ML INJ IVP PRN (19:52)
[2021-08-25] MEDS ORDERED: Ondansetron 4 MG/2 ML VIAL IVP PRN (19:52)
[2021-08-25] MEDS: 0.9 % Sodium Chloride 1,000 ML IVC SCH (21:42)
[2021-08-25] MEDS ORDERED: *HR* Dextrose 50 % in Water (Syg) 50 ML SYRINGE IVP PRN (22:08)
[2021-08-25] MEDS ORDERED: Dextrose Gel 15 GM/37.5 ML TUBE PO PRN ×2 (22:08)
[2021-08-25] MEDS ORDERED: D5% in Water 1,000 ML IVC PRN (22:08)
[2021-08-25] MEDS ORDERED: Thiamine (B-1) 100 MG in 0.9 % Sodium Chloride 50 ML IVPB STA (23:15)
[2021-08-26 00:03] LABS: VBG HCO3 18 mEq/L (21-27); VBG PCO2 43 mmHg (41-51); VBG PH 7.22 pH Units (7.32-7.42); VBG PO2 53 mmHg (25-50)
[2021-08-26 00:18] LABS: Acetaminophen < 10 mcg/mL (10-20); Salicylate < 2.5 mg/dL (15.0-30.0)
[2021-08-26 00:20] LABS: Troponin I 0.03 ng/mL (< 0.04)
[2021-08-26 00:33] LABS: Thyroid Stimulating Hormone 0.323 mcIU/mL (0.340-5.600)
[2021-08-26 00:43] LABS: Folate 9.8 ng/mL (3.0-16.0)
[2021-08-26 00:48] LABS: Vitamin B12 > 1500 pg/mL (250-1100)
[2021-08-26 01:40] LABS: Basophils % 0.2 %; Eosinophils % 0.1 %; Hematocrit 34.6 % (35.3-44.9); Hemoglobin 10.9 g/dL (11.5-15.4); Immature Granulocytes % 0.9 % (0-4); Lymphocytes # 1.3 K/mcL (0.6-4.6); Mean Corpuscular HGB Conc 31.5 g/dL (31.6-35.5); Mean Corpuscular Hemoglobin 29.3 pg (28.0-33.3); Mean Platelet Volume 9.2 fL (9.4-12.4); Monocytes # 1.8 K/mcL (0.0-1.3); Monocytes % 14.3 %; Neutrophils # 9.6 K/mcL (1.6-8.9); Platelet Count 338 K/mcL (140-400); Red Blood Count 3.72 M/mcL (3.82-4.97); Red Cell Distribution Width 14.4 % (11.5-14.5); Segmented Neutrophils % 74.5 %; White Blood Count 12.8 K/mcL (4.3-11.1)
[2021-08-26 01:48] LABS: INR 1.4; Prothrombin Time 15.4 Seconds (9.4-12.1)
[2021-08-26 02:00] LABS: Albumin 3.3 g/dL (3.5-5.7); Albumin/Globulin Ratio 1.1 (1.1-2.2); Bilirubin,Total 0.4 mg/dL (0.3-1.0); Calcium 9.5 mg/dL (8.6-10.3); Magnesium 3.3 mg/dL (1.6-2.6); Phosphorous 4.6 mg/dL (2.7-4.5); Total Protein 6.3 g/dL (6.4-8.9)
[2021-08-26] MEDS ORDERED: *HR* Metoprolol 5 MG/5 ML VIAL IVP ONE (06:14)
[2021-08-26] MEDS: Metoprolol XL (24 HR) Succ 25 MG TAB.ER.24H PO SCH (10:04)
[2021-08-26] MEDS: 0.9 % Sodium Chloride 1,000 ML IVC SCH (10:07)
[2021-08-26 11:00] LABS: Estimated Average Glucose 131 mg/dl; Hemoglobin A1C 6.2 %
[2021-08-26] MEDS: Acetaminophen 325 MG TABLET PO PRN (12:45)
[2021-08-26] MEDS: Sodium Bicarbonate 75 MEQ in 0.45 % Sodium Chloride 1,000 ML IVC SCH (12:46)
[2021-08-26] MEDS ORDERED: cefTRIAXone 1,000 MG in 0.9 % Sodium Chloride 10 ML IVP SCH (18:00)
[2021-08-27] MEDS: Sodium Bicarbonate 75 MEQ in 0.45 % Sodium Chloride 1,000 ML IVC SCH (00:22)
[2021-08-27 01:44] LABS: Basophils % 0.3 %; Eosinophils # 0.1 K/mcL (0.0-0.6); Eosinophils % 0.6 %; Hematocrit 32.6 % (35.3-44.9); Hemoglobin 9.5 g/dL (11.5-15.4); Lymphocytes # 1.4 K/mcL (0.6-4.6); Lymphocytes % 15.2 %; Mean Corpuscular HGB Conc 29.1 g/dL (31.6-35.5); Mean Corpuscular Hemoglobin 27.7 pg (28.0-33.3); Mean Platelet Volume 9.2 fL (9.4-12.4); Monocytes # 1.2 K/mcL (0.0-1.3); Monocytes % 13.1 %; Neutrophils # 6.6 K/mcL (1.6-8.9); Nucleated Red Blood Cells 0.3 /100 WBC (0); Platelet Count 268 K/mcL (140-400); Red Blood Count 3.43 M/mcL (3.82-4.97); Red Cell Distribution Width 14.7 % (11.5-14.5); Segmented Neutrophils % 69.8 %; White Blood Count 9.4 K/mcL (4.3-11.1)
[2021-08-27 01:59] LABS: Calcium 9.3 mg/dL (8.6-10.3); Potassium 4.3 mEq/L (3.5-5.1)
[2021-08-27] MEDS: Metoprolol XL (24 HR) Succ 25 MG TAB.ER.24H PO SCH (08:32)
[2021-08-27] MEDS ORDERED: Perflutren Lipid Microsphere 1.3 ML in 0.9 % Sodium Chloride 8.7 ML IVP PRN (09:33)
[2021-08-27] MEDS ORDERED: D5% in Water 1,000 ML IVC SCH (11:00)
[2021-08-27] MEDS ORDERED: CeFAZolin Syr 2,000MG/20 ML 2,000 MG/20 ML SYRINGE IVPB ONE (11:57)
[2021-08-27] MEDS ORDERED: Ringers Solution, Lactated 1,000 ML IVC SCH (12:00)
[2021-08-27] MEDS: *HR* Heparin 5,000 UNIT/ML VIAL SQ SCH ×2 (13:11→23:06)
[2021-08-27 13:51] LABS: Calcium 9.3 mg/dL (8.6-10.3); Magnesium 2.6 mg/dL (1.6-2.6); Potassium 4.2 mEq/L (3.5-5.1)
[2021-08-27] MEDS: Piperacillin/Tazobactam 3.375 GM in 0.9 % Sodium Chloride Mini Bag 100 ML IVPB SCH (18:00)
[2021-08-28] LABS: Sodium, Urine 51.9 mEq/L
[2021-08-28 00:32] LABS: Calcium 9.3 mg/dL (8.6-10.3); Potassium 4.6 mEq/L (3.5-5.1)
[2021-08-28] MEDS: Piperacillin/Tazobactam 3.375 GM in 0.9 % Sodium Chloride Mini Bag 100 ML IVPB SCH ×3 (00:54→15:15)
[2021-08-28 05:07] LABS: Basophils % 0.4 %; Eosinophils # 0.2 K/mcL (0.0-0.6); Eosinophils % 1.5 %; Hematocrit 33.6 % (35.3-44.9); Lymphocytes # 1.6 K/mcL (0.6-4.6); Lymphocytes % 15.4 %; Mean Corpuscular HGB Conc 29.8 g/dL (31.6-35.5); Mean Corpuscular Hemoglobin 28.5 pg (28.0-33.3); Mean Corpuscular Volume 95.7 fL (83.0-100.0); Mean Platelet Volume 9.4 fL (9.4-12.4); Neutrophils # 7.4 K/mcL (1.6-8.9); Platelet Count 257 K/mcL (140-400); Red Blood Count 3.51 M/mcL (3.82-4.97); Red Cell Distribution Width 14.8 % (11.5-14.5); Segmented Neutrophils % 71.7 %; White Blood Count 10.3 K/mcL (4.3-11.1)
[2021-08-28 05:12] LABS: Calcium 9.4 mg/dL (8.6-10.3); Potassium 4.2 mEq/L (3.5-5.1)
[2021-08-28 05:13] LABS: Calcium 9.7 mg/dL (8.6-10.3); Potassium 4.2 mEq/L (3.5-5.1)
[2021-08-28] MEDS ORDERED: Metoprolol XL (24 HR) Succ 25 MG TAB.ER.24H PO SCH (09:00)
[2021-08-28] MEDS ORDERED: *HR* Heparin 5,000 UNIT/ML VIAL IVP ONE (09:04)
[2021-08-28] MEDS ORDERED: *HR* Heparin 5,000 UNIT/ML VIAL IVP PRN ×2 (09:04)
[2021-08-28] MEDS: BuPROPion XL (24 HR) 150 MG TABLET PO SCH (09:43)
[2021-08-28] MEDS: Heparin 25,000UNIT/250ML 1/2NS 25,000 UNIT/250 ML IV.SOLN IVC SCH ×2 (09:49→17:28)
[2021-08-28] MEDS ORDERED: CeFAZolin Syr 2,000MG/20 ML 2,000 MG/20 ML SYRINGE IVPB ONE (12:03)
[2021-08-28] MEDS ORDERED: Ringers Solution, Lactated 1,000 ML IVC SCH (12:15)
[2021-08-28] MEDS ORDERED: *HR* Rocuronium Bromide 50 MG/5 ML VIAL ONE (12:16)
[2021-08-28] MEDS ORDERED: Lidocaine HCL 4 ML Topical Solution (Laryng-O-Jet Kit Sterile Pak) TP ONE (12:16)
[2021-08-28] MEDS ORDERED: Ondansetron 4 MG/2 ML VIAL ONE (12:16)
[2021-08-28] MEDS ORDERED: *HR* Propofol 200 MG/20 ML VIAL IVP ONE (12:16)
[2021-08-28] MEDS ORDERED: *HR* FentaNYL (PF) 100 MCG/2 ML VIAL ONE (12:16)
[2021-08-28] MEDS ORDERED: Lidocaine -MPF 2% 5 ML VIAL ONE (12:16)
[2021-08-28] MEDS ORDERED: *HR* FentaNYL (PF) 100 MCG/2 ML VIAL IVP PRN (12:21)
[2021-08-28 12:55] LABS: Influenza A PCR Negative (Negative); Influenza B PCR Negative (Negative); Resp. Syncytial Virus PCR Negative (Negative)
[2021-08-28 12:59] LABS: SARS-CoV-2 by PCR (In House) Negative (Negative)
[2021-08-28] MEDS ORDERED: D5% in Water 1,000 ML IVC SCH (13:15)
[2021-08-28 16:14] LABS: Hemoglobin 9.4 g/dL (11.5-15.4); Mean Corpuscular HGB Conc 29.4 g/dL (31.6-35.5); Mean Corpuscular Hemoglobin 28.4 pg (28.0-33.3); Mean Corpuscular Volume 96.7 fL (83.0-100.0); Mean Platelet Volume 9.5 fL (9.4-12.4); Platelet Count 239 K/mcL (140-400); Red Blood Count 3.31 M/mcL (3.82-4.97); Red Cell Distribution Width 14.6 % (11.5-14.5); White Blood Count 10.3 K/mcL (4.3-11.1)
[2021-08-28 16:23] LABS: Heparin anti-factor XA UFH < 0.04 IU/mL (0.30-0.70); INR 1.7; Prothrombin Time 18.5 Seconds (9.4-12.1)
[2021-08-28 16:26] LABS: Activated Partial Thrombo Time 35.4 Seconds (26.0-36.0)
[2021-08-28 16:27] LABS: Calcium 9.2 mg/dL (8.6-10.3); Potassium 4.9 mEq/L (3.5-5.1)
[2021-08-28] MEDS: CeFAZolin 2,000 MG/120 ML BAG IVPB SCH (17:54)
[2021-08-29] MEDS: CeFAZolin 2,000 MG/120 ML BAG IVPB SCH (00:56)
[2021-08-29] MEDS: Piperacillin/Tazobactam 3.375 GM in 0.9 % Sodium Chloride Mini Bag 100 ML IVPB SCH ×3 (00:56→16:28)
[2021-08-29 07:36] LABS: Calcium 9.7 mg/dL (8.6-10.3); Potassium 4.5 mEq/L (3.5-5.1)
[2021-08-29] MEDS: Metoprolol XL (24 HR) Succ 25 MG TAB.ER.24H PO SCH (09:04)
[2021-08-29] MEDS: BuPROPion XL (24 HR) 150 MG TABLET PO SCH (09:04)
[2021-08-29] MEDS: Acetaminophen 325 MG TABLET PO PRN (13:26)
[2021-08-29] MEDS: Heparin 25,000UNIT/250ML 1/2NS 25,000 UNIT/250 ML IV.SOLN IVC SCH (17:33)
[2021-08-30] MEDS: Piperacillin/Tazobactam 3.375 GM in 0.9 % Sodium Chloride Mini Bag 100 ML IVPB SCH ×5 (00:26→23:50)
[2021-08-30] MEDS: BuPROPion XL (24 HR) 150 MG TABLET PO SCH (07:32)
[2021-08-30] MEDS: Metoprolol XL (24 HR) Succ 25 MG TAB.ER.24H PO SCH (07:32)
[2021-08-30 07:47] LABS: Basophils % 0.3 %; Eosinophils # 0.2 K/mcL (0.0-0.6); Hematocrit 29.5 % (35.3-44.9); Immature Granulocytes % 1.8 % (0-4); Lymphocytes # 1.3 K/mcL (0.6-4.6); Lymphocytes % 16.5 %; Mean Corpuscular HGB Conc 30.5 g/dL (31.6-35.5); Mean Corpuscular Hemoglobin 27.9 pg (28.0-33.3); Mean Corpuscular Volume 91.3 fL (83.0-100.0); Mean Platelet Volume 9.6 fL (9.4-12.4); Monocytes # 0.6 K/mcL (0.0-1.3); Monocytes % 7.1 %; Neutrophils # 5.6 K/mcL (1.6-8.9); Platelet Count 286 K/mcL (140-400); Red Blood Count 3.23 M/mcL (3.82-4.97); Red Cell Distribution Width 13.7 % (11.5-14.5); Segmented Neutrophils % 71.3 %; White Blood Count 7.9 K/mcL (4.3-11.1)
[2021-08-30 08:03] LABS: Potassium 3.9 mEq/L (3.5-5.1)
[2021-08-30] MEDS ORDERED: Apixaban 5 MG TABLET PO SCH (09:30)
[2021-08-30] MEDS: Acetaminophen 325 MG TABLET PO PRN (19:42)
[2021-08-30] MEDS: Melatonin 3 MG TABLET PO PRN (19:42)
[2021-08-30] MEDS: Apixaban 5 MG TABLET PO SCH (23:50)
[2021-08-31] MEDS: Piperacillin/Tazobactam 3.375 GM in 0.9 % Sodium Chloride Mini Bag 100 ML IVPB SCH ×3 (08:19→22:40)
[2021-08-31] MEDS: BuPROPion XL (24 HR) 150 MG TABLET PO SCH (08:20)
[2021-08-31] MEDS: Apixaban 5 MG TABLET PO SCH ×2 (08:20→21:11)
[2021-08-31] MEDS: Metoprolol XL (24 HR) Succ 25 MG TAB.ER.24H PO SCH (08:20)
[2021-08-31] MEDS ORDERED: Dextrose Gel 15 GM/37.5 ML TUBE PO PRN ×2 (12:07)
[2021-08-31] MEDS ORDERED: D5% in Water 1,000 ML IVC PRN (12:07)
[2021-08-31] MEDS ORDERED: *HR* Dextrose 50 % in Water (Syg) 50 ML SYRINGE IVP PRN (12:07)
[2021-08-31] MEDS: Insulin LISPRO 300 UNITS/3 ML VIAL SUBQ SCH ×2 (18:14→21:13)
[2021-08-31] MEDS: Melatonin 3 MG TABLET PO PRN (21:11)
[2021-08-31] MEDS: Latanoprost 2.5 ML BOTTLE BOTH EYES SCH (21:15)
[2021-09-01 04:28] LABS: Basophils % 0.3 %; Eosinophils # 0.2 K/mcL (0.0-0.6); Eosinophils % 1.8 %; Hematocrit 26.8 % (35.3-44.9); Hemoglobin 8.3 g/dL (11.5-15.4); Immature Granulocytes % 2.4 % (0-4); Lymphocytes # 1.7 K/mcL (0.6-4.6); Lymphocytes % 15.9 %; Mean Corpuscular Hemoglobin 28.2 pg (28.0-33.3); Mean Corpuscular Volume 91.2 fL (83.0-100.0); Mean Platelet Volume 9.5 fL (9.4-12.4); Monocytes # 0.9 K/mcL (0.0-1.3); Monocytes % 8.8 %; Neutrophils # 7.4 K/mcL (1.6-8.9); Nucleated Red Blood Cells 0.2 /100 WBC (0); Platelet Count 334 K/mcL (140-400); Red Blood Count 2.94 M/mcL (3.82-4.97); Red Cell Distribution Width 13.9 % (11.5-14.5); Segmented Neutrophils % 70.8 %; White Blood Count 10.5 K/mcL (4.3-11.1)
[2021-09-01 04:41] LABS: Calcium 8.8 mg/dL (8.6-10.3); Magnesium 1.6 mg/dL (1.6-2.6)
[2021-09-01] MEDS: Apixaban 5 MG TABLET PO SCH ×2 (08:33→21:20)
[2021-09-01] MEDS: Piperacillin/Tazobactam 3.375 GM in 0.9 % Sodium Chloride Mini Bag 100 ML IVPB SCH ×2 (08:33→19:56)
[2021-09-01] MEDS: Metoprolol XL (24 HR) Succ 25 MG TAB.ER.24H PO SCH (08:34)
[2021-09-01] MEDS: BuPROPion XL (24 HR) 150 MG TABLET PO SCH (08:34)
[2021-09-01] MEDS: amLODIPine 5 MG TABLET PO SCH (08:35)
[2021-09-01] MEDS: Insulin LISPRO 300 UNITS/3 ML VIAL SUBQ SCH ×4 (09:16→21:21)
[2021-09-01] MEDS: Iron Sucrose Complex 250 MG in 0.9 % Sodium Chloride 250 ML IVPB SCH (13:22)
[2021-09-01] MEDS: polyethylene glycoL 3350 17 GM POWD.PACK PO SCH (13:23)
[2021-09-01] MEDS: Latanoprost 2.5 ML BOTTLE BOTH EYES SCH (21:21)
[2021-09-01] MEDS: Melatonin 3 MG TABLET PO PRN (21:21)
[2021-09-02] MEDS: Piperacillin/Tazobactam 3.375 GM in 0.9 % Sodium Chloride Mini Bag 100 ML IVPB SCH ×3 (04:15→19:47)
[2021-09-02 04:50] LABS: Basophils % 0.3 %; Eosinophils # 0.2 K/mcL (0.0-0.6); Eosinophils % 1.5 %; Hematocrit 27.4 % (35.3-44.9); Hemoglobin 8.6 g/dL (11.5-15.4); Immature Granulocytes % 2.3 % (0-4); Lymphocytes # 1.1 K/mcL (0.6-4.6); Lymphocytes % 10.2 %; Mean Corpuscular HGB Conc 31.4 g/dL (31.6-35.5); Mean Corpuscular Hemoglobin 28.8 pg (28.0-33.3); Mean Corpuscular Volume 91.6 fL (83.0-100.0); Mean Platelet Volume 9.6 fL (9.4-12.4); Monocytes # 0.9 K/mcL (0.0-1.3); Monocytes % 8.5 %; Neutrophils # 8.4 K/mcL (1.6-8.9); Nucleated Red Blood Cells 0.2 /100 WBC (0); Platelet Count 409 K/mcL (140-400); Red Blood Count 2.99 M/mcL (3.82-4.97); Red Cell Distribution Width 14.4 % (11.5-14.5); Segmented Neutrophils % 77.2 %; White Blood Count 10.9 K/mcL (4.3-11.1)
[2021-09-02 05:15] LABS: Calcium 9.2 mg/dL (8.6-10.3); Magnesium 1.6 mg/dL (1.6-2.6); Potassium 3.9 mEq/L (3.5-5.1)
[2021-09-02] MEDS: Insulin LISPRO 300 UNITS/3 ML VIAL SUBQ SCH ×4 (08:49→19:37)
[2021-09-02] MEDS: Apixaban 5 MG TABLET PO SCH ×2 (08:50→19:46)
[2021-09-02] MEDS: polyethylene glycoL 3350 17 GM POWD.PACK PO SCH (08:51)
[2021-09-02] MEDS: amLODIPine 5 MG TABLET PO SCH (08:51)
[2021-09-02] MEDS: Metoprolol XL (24 HR) Succ 25 MG TAB.ER.24H PO SCH (08:52)
[2021-09-02] MEDS: BuPROPion XL (24 HR) 150 MG TABLET PO SCH (08:52)
[2021-09-02] MEDS: Iron Sucrose Complex 250 MG in 0.9 % Sodium Chloride 250 ML IVPB SCH (08:59)
[2021-09-02] MEDS: Latanoprost 2.5 ML BOTTLE BOTH EYES SCH (19:48)
[2021-09-02 21:12] LABS: CK-BB (CK isoenzymes) 0 % (0-0); CK-MB (CK isoenzymes) 0 % (0-4); CK-MM (CK-isoenzymes) 100 % (96-100)
[2021-09-02] MEDS: Melatonin 3 MG TABLET PO PRN (21:47)
[2021-09-03] MEDS: Piperacillin/Tazobactam 3.375 GM in 0.9 % Sodium Chloride Mini Bag 100 ML IVPB SCH ×2 (03:59→12:21)
[2021-09-03 05:13] LABS: Basophils % 0.4 %; Eosinophils # 0.2 K/mcL (0.0-0.6); Eosinophils % 2.2 %; Hematocrit 24.9 % (35.3-44.9); Hemoglobin 7.8 g/dL (11.5-15.4); Immature Granulocytes % 1.7 % (0-4); Lymphocytes # 1.3 K/mcL (0.6-4.6); Lymphocytes % 15.5 %; Mean Corpuscular HGB Conc 31.3 g/dL (31.6-35.5); Mean Corpuscular Hemoglobin 28.8 pg (28.0-33.3); Mean Corpuscular Volume 91.9 fL (83.0-100.0); Mean Platelet Volume 9.1 fL (9.4-12.4); Monocytes # 0.8 K/mcL (0.0-1.3); Monocytes % 9.1 %; Neutrophils # 5.9 K/mcL (1.6-8.9); Platelet Count 420 K/mcL (140-400); Red Blood Count 2.71 M/mcL (3.82-4.97); Red Cell Distribution Width 14.8 % (11.5-14.5); Segmented Neutrophils % 71.1 %; White Blood Count 8.3 K/mcL (4.3-11.1)
[2021-09-03 05:31] LABS: Magnesium 1.6 mg/dL (1.6-2.6); Potassium 3.8 mEq/L (3.5-5.1)
[2021-09-03] MEDS: BuPROPion XL (24 HR) 150 MG TABLET PO SCH (08:20)
[2021-09-03] MEDS: polyethylene glycoL 3350 17 GM POWD.PACK PO SCH (08:21)
[2021-09-03] MEDS: Apixaban 5 MG TABLET PO SCH ×2 (08:21→21:17)
[2021-09-03] MEDS: amLODIPine 5 MG TABLET PO SCH (08:21)
[2021-09-03] MEDS: Insulin LISPRO 300 UNITS/3 ML VIAL SUBQ SCH ×4 (08:21→22:27)
[2021-09-03] MEDS: Metoprolol XL (24 HR) Succ 25 MG TAB.ER.24H PO SCH (08:21)
[2021-09-03 10:51] LABS: CK Total (Ck Isoenzymes) 367 U/L (26-192)
[2021-09-03] MEDS: Latanoprost 2.5 ML BOTTLE BOTH EYES SCH (21:17)
[2021-09-04 05:18] LABS: Basophils % 0.1 %; Eosinophils # 0.2 K/mcL (0.0-0.6); Hematocrit 25.1 % (35.3-44.9); Hemoglobin 7.9 g/dL (11.5-15.4); Immature Granulocytes % 1.3 % (0-4); Lymphocytes # 1.3 K/mcL (0.6-4.6); Lymphocytes % 17.7 %; Mean Corpuscular HGB Conc 31.5 g/dL (31.6-35.5); Mean Corpuscular Hemoglobin 28.9 pg (28.0-33.3); Mean Corpuscular Volume 91.9 fL (83.0-100.0); Mean Platelet Volume 9.1 fL (9.4-12.4); Monocytes # 0.8 K/mcL (0.0-1.3); Monocytes % 10.1 %; Neutrophils # 5.2 K/mcL (1.6-8.9); Platelet Count 529 K/mcL (140-400); Red Blood Count 2.73 M/mcL (3.82-4.97); Segmented Neutrophils % 68.8 %; White Blood Count 7.6 K/mcL (4.3-11.1)
[2021-09-04 05:40] LABS: Magnesium 1.6 mg/dL (1.6-2.6); Potassium 3.9 mEq/L (3.5-5.1)
[2021-09-04] MEDS: polyethylene glycoL 3350 17 GM POWD.PACK PO SCH (07:30)
[2021-09-04] MEDS: amLODIPine 5 MG TABLET PO SCH (07:30)
[2021-09-04] MEDS: Metoprolol XL (24 HR) Succ 25 MG TAB.ER.24H PO SCH (07:30)
[2021-09-04] MEDS: Apixaban 5 MG TABLET PO SCH ×2 (07:30→20:37)
[2021-09-04] MEDS: BuPROPion XL (24 HR) 150 MG TABLET PO SCH (07:30)
[2021-09-04] MEDS: Insulin LISPRO 300 UNITS/3 ML VIAL SUBQ SCH ×4 (07:57→20:38)
[2021-09-04] MEDS: Pregabalin 25 MG CAPSULE PO SCH ×2 (15:12→20:37)
[2021-09-04] MEDS: Acetaminophen 325 MG TABLET PO PRN (15:22)
[2021-09-04] MEDS: Latanoprost 2.5 ML BOTTLE BOTH EYES SCH (20:38)
[2021-09-05 06:54] LABS: Basophils % 0.3 %; Eosinophils # 0.1 K/mcL (0.0-0.6); Eosinophils % 1.6 %; Hematocrit 27.3 % (35.3-44.9); Hemoglobin 8.6 g/dL (11.5-15.4); Immature Granulocytes % 1.2 % (0-4); Lymphocytes # 1.2 K/mcL (0.6-4.6); Lymphocytes % 16.8 %; Mean Corpuscular HGB Conc 31.5 g/dL (31.6-35.5); Mean Corpuscular Hemoglobin 29.4 pg (28.0-33.3); Mean Corpuscular Volume 93.2 fL (83.0-100.0); Monocytes # 0.8 K/mcL (0.0-1.3); Monocytes % 10.2 %; Neutrophils # 5.1 K/mcL (1.6-8.9); Platelet Count 573 K/mcL (140-400); Red Blood Count 2.93 M/mcL (3.82-4.97); Red Cell Distribution Width 15.5 % (11.5-14.5); Segmented Neutrophils % 69.9 %; White Blood Count 7.3 K/mcL (4.3-11.1)
[2021-09-05 07:40] LABS: Calcium 9.3 mg/dL (8.6-10.3); Potassium 4.1 mEq/L (3.5-5.1)
[2021-09-05 08:52] LABS: Magnesium 1.6 mg/dL (1.6-2.6)
[2021-09-05] MEDS: Metoprolol XL (24 HR) Succ 25 MG TAB.ER.24H PO SCH (08:53)
[2021-09-05] MEDS: Vitamin B Complex/Vit C/Vit E 1 EACH TABLET PO SCH (08:53)
[2021-09-05] MEDS: amLODIPine 5 MG TABLET PO SCH (08:53)
[2021-09-05] MEDS: BuPROPion XL (24 HR) 150 MG TABLET PO SCH (08:53)
[2021-09-05] MEDS: Apixaban 5 MG TABLET PO SCH ×2 (08:53→20:55)
[2021-09-05] MEDS: polyethylene glycoL 3350 17 GM POWD.PACK PO SCH (08:54)
[2021-09-05] MEDS: Insulin LISPRO 300 UNITS/3 ML VIAL SUBQ SCH ×4 (09:03→20:49)
[2021-09-05] MEDS: Pregabalin 25 MG CAPSULE PO SCH ×3 (09:08→20:55)
[2021-09-05] MEDS: Latanoprost 2.5 ML BOTTLE BOTH EYES SCH (20:56)
[2021-09-06 04:32] LABS: Basophils % 0.3 %; Eosinophils # 0.1 K/mcL (0.0-0.6); Eosinophils % 1.7 %; Hematocrit 25.1 % (35.3-44.9); Hemoglobin 7.7 g/dL (11.5-15.4); Immature Granulocytes % 1.1 % (0-4); Lymphocytes # 1.4 K/mcL (0.6-4.6); Lymphocytes % 19.9 %; Mean Corpuscular HGB Conc 30.7 g/dL (31.6-35.5); Mean Corpuscular Hemoglobin 28.7 pg (28.0-33.3); Mean Corpuscular Volume 93.7 fL (83.0-100.0); Mean Platelet Volume 8.9 fL (9.4-12.4); Monocytes # 0.8 K/mcL (0.0-1.3); Monocytes % 11.5 %; Neutrophils # 4.6 K/mcL (1.6-8.9); Platelet Count 566 K/mcL (140-400); Red Blood Count 2.68 M/mcL (3.82-4.97); Red Cell Distribution Width 16.4 % (11.5-14.5); Segmented Neutrophils % 65.5 %; White Blood Count 7.1 K/mcL (4.3-11.1)
[2021-09-06 04:54] LABS: Calcium 9.4 mg/dL (8.6-10.3); Magnesium 1.6 mg/dL (1.6-2.6); Potassium 4.4 mEq/L (3.5-5.1)
[2021-09-06] MEDS: amLODIPine 5 MG TABLET PO SCH (08:17)
[2021-09-06] MEDS: Vitamin B Complex/Vit C/Vit E 1 EACH TABLET PO SCH (08:18)
[2021-09-06] MEDS: BuPROPion XL (24 HR) 150 MG TABLET PO SCH (08:18)
[2021-09-06] MEDS: Metoprolol XL (24 HR) Succ 25 MG TAB.ER.24H PO SCH (08:18)
[2021-09-06] MEDS: Pregabalin 25 MG CAPSULE PO SCH ×3 (08:18→21:06)
[2021-09-06] MEDS: Insulin LISPRO 300 UNITS/3 ML VIAL SUBQ SCH ×4 (08:18→21:00)
[2021-09-06] MEDS: polyethylene glycoL 3350 17 GM POWD.PACK PO SCH (08:19)
[2021-09-06] MEDS: Latanoprost 2.5 ML BOTTLE BOTH EYES SCH (21:00)
[2021-09-07 04:40] LABS: Basophils % 0.3 %; Eosinophils # 0.1 K/mcL (0.0-0.6); Eosinophils % 1.8 %; Hemoglobin 8.3 g/dL (11.5-15.4); Immature Granulocytes % 0.8 % (0-4); Lymphocytes # 1.4 K/mcL (0.6-4.6); Lymphocytes % 21.5 %; Mean Corpuscular HGB Conc 30.7 g/dL (31.6-35.5); Mean Corpuscular Hemoglobin 28.8 pg (28.0-33.3); Mean Corpuscular Volume 93.8 fL (83.0-100.0); Mean Platelet Volume 8.7 fL (9.4-12.4); Monocytes # 0.8 K/mcL (0.0-1.3); Monocytes % 12.6 %; Platelet Count 563 K/mcL (140-400); Red Blood Count 2.88 M/mcL (3.82-4.97); Red Cell Distribution Width 17.1 % (11.5-14.5); White Blood Count 6.3 K/mcL (4.3-11.1)
[2021-09-07 04:57] LABS: Calcium 9.2 mg/dL (8.6-10.3); Magnesium 1.7 mg/dL (1.6-2.6); Potassium 4.1 mEq/L (3.5-5.1)
[2021-09-07] MEDS: polyethylene glycoL 3350 17 GM POWD.PACK PO SCH (08:48)
[2021-09-07] MEDS: Vitamin B Complex/Vit C/Vit E 1 EACH TABLET PO SCH (08:48)
[2021-09-07] MEDS: amLODIPine 5 MG TABLET PO SCH (08:48)
[2021-09-07] MEDS: Pregabalin 25 MG CAPSULE PO SCH ×3 (08:48→21:30)
[2021-09-07] MEDS: BuPROPion XL (24 HR) 150 MG TABLET PO SCH (08:48)
[2021-09-07] MEDS: Insulin LISPRO 300 UNITS/3 ML VIAL SUBQ SCH ×4 (08:49→21:30)
[2021-09-07] MEDS: Metoprolol XL (24 HR) Succ 25 MG TAB.ER.24H PO SCH (08:49)
[2021-09-07] MEDS: Apixaban 5 MG TABLET PO SCH (21:29)
[2021-09-07] MEDS: Latanoprost 2.5 ML BOTTLE BOTH EYES SCH (21:31)
[2021-09-08 05:55] LABS: Basophils % 0.5 %; Eosinophils # 0.1 K/mcL (0.0-0.6); Eosinophils % 2.2 %; Hematocrit 27.7 % (35.3-44.9); Hemoglobin 8.6 g/dL (11.5-15.4); Immature Granulocytes % 1.2 % (0-4); Lymphocytes # 1.4 K/mcL (0.6-4.6); Lymphocytes % 23.5 %; Mean Corpuscular Hemoglobin 29.2 pg (28.0-33.3); Mean Corpuscular Volume 93.9 fL (83.0-100.0); Mean Platelet Volume 8.7 fL (9.4-12.4); Monocytes # 0.8 K/mcL (0.0-1.3); Monocytes % 12.8 %; Neutrophils # 3.5 K/mcL (1.6-8.9); Platelet Count 543 K/mcL (140-400); Red Blood Count 2.95 M/mcL (3.82-4.97); Red Cell Distribution Width 17.4 % (11.5-14.5); Segmented Neutrophils % 59.8 %; White Blood Count 5.9 K/mcL (4.3-11.1)
[2021-09-08 06:18] LABS: Calcium 9.6 mg/dL (8.6-10.3); Magnesium 1.8 mg/dL (1.6-2.6); Potassium 4.2 mEq/L (3.5-5.1)
[2021-09-08] MEDS: Insulin LISPRO 300 UNITS/3 ML VIAL SUBQ SCH ×4 (08:12→20:45)
[2021-09-08] MEDS: polyethylene glycoL 3350 17 GM POWD.PACK PO SCH (08:12)
[2021-09-08] MEDS: Pregabalin 25 MG CAPSULE PO SCH ×3 (08:13→20:42)
[2021-09-08] MEDS: amLODIPine 5 MG TABLET PO SCH (08:13)
[2021-09-08] MEDS: Apixaban 5 MG TABLET PO SCH ×2 (08:13→20:42)
[2021-09-08] MEDS: BuPROPion XL (24 HR) 150 MG TABLET PO SCH (08:13)
[2021-09-08] MEDS: Vitamin B Complex/Vit C/Vit E 1 EACH TABLET PO SCH (08:13)
[2021-09-08] MEDS: Metoprolol XL (24 HR) Succ 25 MG TAB.ER.24H PO SCH (08:13)
[2021-09-08] MEDS: Latanoprost 2.5 ML BOTTLE BOTH EYES SCH (20:43)
[2021-09-09 03:17] VITALS: TEMP 98
[2021-09-09 06:40] LABS: Hematocrit 26.7 % (35.3-44.9); Hemoglobin 8.2 g/dL (11.5-15.4)
[2021-09-09 07:01] LABS: Calcium 9.1 mg/dL (8.6-10.3); Magnesium 1.7 mg/dL (1.6-2.6); Phosphorous 3.5 mg/dL (2.7-4.5); Potassium 4.3 mEq/L (3.5-5.1)
[2021-09-09 07:18] VITALS: BP 154/77; PULSE 79; O2SAT 95
[2021-09-09] MEDS: Insulin LISPRO 300 UNITS/3 ML VIAL SUBQ SCH ×2 (08:38→12:10)
[2021-09-09] MEDS: BuPROPion XL (24 HR) 150 MG TABLET PO SCH (08:39)
[2021-09-09] MEDS: Pregabalin 25 MG CAPSULE PO SCH (08:39)
[2021-09-09] MEDS: Apixaban 5 MG TABLET PO SCH (08:39)
[2021-09-09] MEDS: Metoprolol XL (24 HR) Succ 25 MG TAB.ER.24H PO SCH (08:40)
[2021-09-09] MEDS: polyethylene glycoL 3350 17 GM POWD.PACK PO SCH (08:40)
[2021-09-09] MEDS: Vitamin B Complex/Vit C/Vit E 1 EACH TABLET PO SCH (08:40)
[2021-09-09] MEDS: amLODIPine 5 MG TABLET PO SCH (08:40)
[2021-09-09] MEDS ORDERED: Insulin DETEMIR 100 UNIT/ML X5UNITS SUBQ SCH (09:00)
[2021-09-09 11:07] LABS: Influenza A PCR Negative (Negative); Influenza B PCR Negative (Negative); Resp. Syncytial Virus PCR Negative (Negative)
[2021-09-09 11:43] LABS: SARS-CoV-2 by PCR (In House) Negative (Negative)
== END 2021-09-09 14:30 | disposition critical access hospital (66) | DRG 853 ==
LOC: 2NENU 16:42 → EMEROOARM 16:42 → SUATTDRO 19:09 → 2NENU 20:20 → SUATTDRO 20:52 → 4WAOSI 08-27 17:02
PROVIDERS: ADMIT Internal Medicine; ATTEND Internal Medicine

== ENCOUNTER 2021-11-22 18:49 | Observation (INO) ==
[2021-11-22 21:30] LABS: Bacteria,Urine Many per hpf (None-Few); Bilirubin,Urine Negative (Negative); Blood,Urine Moderate (Negative); Budding Yeast,Urine Many per hpf (None Seen); Clarity,Urine Ex.Turbid (Clear); Color,Urine Dark-Yellow (Yellow); Glucose,Urine (UA) Normal (Normal); Ketones,Urine Negative (Negative); Leukocyte Esterase,Urine Large (Negative); Nitrite,Urine Negative (Negative); PH,Urine 6.5 pH Units (5.0-8.0); Protein,Urine >=300 mg/dL (Neg-Trace); RBC,Urine 15-30 per hpf (0-3); Urobilinogen,Urine Normal (Normal); WBC,Urine TNTC per hpf (0-3)
[2021-11-22 21:39] LABS: Acetaminophen < 10 mcg/mL (10-20); Alanine Aminotransferase 22 Units/L (7-52); Albumin 3.9 g/dL (3.5-5.7); Albumin/Globulin Ratio 1.4 (1.1-2.2); Alkaline Phosphatase 133 Units/L (34-104); Aspartate Amino Transferase 30 Units/L (13-39); BUN/Creatinine Ratio 15 (6-26); Bilirubin,Total 0.5 mg/dL (0.3-1.0); Blood Urea Nitrogen 28 mg/dL (8-23); Calcium 10.1 mg/dL (8.6-10.3); Carbon Dioxide 25 mEq/L (23-29); Chloride 105 mEq/L (98-107); Ethanol < 10 mg/dL (Less than 10); Globulin 2.7 g/dL (2.4-3.5); Glucose 159 mg/dL (70-105); Osmolality,Calculated 293 (280-300); Potassium 4.3 mEq/L (3.5-5.1); Salicylate < 2.5 mg/dL (15.0-30.0); Sodium 137 mEq/L (136-145); Total Protein 6.6 g/dL (6.4-8.9); eGFR For African Americans 33 (> 60); eGFR For Non-African Americans 27 (> 60)
[2021-11-22 21:43] LABS: Amphetamine Screen,Urine Negative ng/mL (Cutoff=1000); Barbiturate Screen,Urine Negative ng/mL (Cutoff=200); Benzodiazepines Screen,Urine Negative ng/mL (Cutoff=200); Cannabinoid Screen,Urine Negative ng/mL (Cutoff = 50); Cocaine Screen,Urine Negative ng/mL (Cutoff= 300); Opiate Screen,Urine Negative ng/mL (Cutoff=300); Phencyclidine Screen,Urine Negative ng/mL (Cutoff=25)
[2021-11-22 21:47] LABS: Basophils # 0.1 K/mcL (0.0-0.2); Basophils % 0.9 %; Eosinophils # 0.3 K/mcL (0.0-0.6); Eosinophils % 3.4 %; Hematocrit 33.6 % (35.3-44.9); Hemoglobin 10.9 g/dL (11.5-15.4); Immature Granulocytes % 0.3 % (0-4); Lymphocytes % 22.1 %; Mean Corpuscular HGB Conc 32.4 g/dL (31.6-35.5); Mean Corpuscular Volume 92.6 fL (83.0-100.0); Mean Platelet Volume 9.3 fL (9.4-12.4); Monocytes # 0.8 K/mcL (0.0-1.3); Monocytes % 9.1 %; Neutrophils # 5.7 K/mcL (1.6-8.9); Platelet Count 365 K/mcL (140-400); Red Blood Count 3.63 M/mcL (3.82-4.97); Red Cell Distribution Width 13.1 % (11.5-14.5); Segmented Neutrophils % 64.2 %; White Blood Count 8.8 K/mcL (4.3-11.1)
[2021-11-22 21:48] LABS: VBG HCO3 26 mEq/L (21-27); VBG PCO2 45 mmHg (41-51); VBG PH 7.36 pH Units (7.32-7.42); VBG PO2 68 mmHg (25-50)
[2021-11-22 21:55] LABS: Creatine Kinase 62 Units/L (30-223)
[2021-11-22 21:59] LABS: Thyroid Stimulating Hormone 0.959 mcIU/mL (0.340-5.600)
[2021-11-22 22:21] LABS: Influenza A PCR Negative (Negative); Influenza B PCR Negative (Negative); Resp. Syncytial Virus PCR Negative (Negative)
[2021-11-22 22:23] LABS: SARS-CoV-2 by PCR (In House) Negative (Negative)
[2021-11-22 23:34] LABS: Bilirubin,Urine Negative (Negative); Blood,Urine Negative (Negative); Clarity,Urine Clear (Clear); Color,Urine Light-Yellow (Yellow); Glucose,Urine (UA) Normal (Normal); Ketones,Urine Negative (Negative); Leukocyte Esterase,Urine Moderate (Negative); Mucus,Urine Few per lpf (None-Few); Nitrite,Urine Negative (Negative); PH,Urine 6.5 pH Units (5.0-8.0); Protein,Urine Trace mg/dL (Neg-Trace); RBC,Urine 0-3 per hpf (0-3); Specific Gravity,Urine 1.012 (1.010-1.025); Squamous Epithelial Cell,Urine Few per hpf (None-Few); Urobilinogen,Urine Normal (Normal); WBC,Urine 30-50 per hpf (0-3)
[2021-11-23] MEDS ORDERED: cefTRIAXone 1,000 MG in 0.9 % Sodium Chloride Mini Bag 100 ML IVPB ONE (00:06)
[2021-11-23] MEDS ORDERED: Naloxone 0.4 MG/ML INJ IVP PRN (01:28)
[2021-11-23] MEDS ORDERED: Melatonin 3 MG TABLET PO PRN (01:28)
[2021-11-23] MEDS ORDERED: 0.9 % Sodium Chloride 1,000 ML IVC SCH (01:30)
[2021-11-23] MEDS ORDERED: 0.9 % Sodium Chloride 500 ML IVC ONE (01:36)
[2021-11-23] MEDS ORDERED: Dextrose 4 GM Chewable Tablets PO PRN ×2 (01:38)
[2021-11-23] MEDS ORDERED: D5% in Water 1,000 ML IVC PRN (01:38)
[2021-11-23] MEDS ORDERED: *HR* Dextrose 50 % in Water (Syg) 50 ML SYRINGE IVP PRN (01:38)
[2021-11-23 05:44] LABS: Hematocrit 32.7 % (35.3-44.9); Hemoglobin 10.4 g/dL (11.5-15.4); Mean Corpuscular HGB Conc 31.8 g/dL (31.6-35.5); Mean Corpuscular Hemoglobin 29.5 pg (28.0-33.3); Mean Corpuscular Volume 92.6 fL (83.0-100.0); Mean Platelet Volume 8.9 fL (9.4-12.4); Platelet Count 339 K/mcL (140-400); Red Blood Count 3.53 M/mcL (3.82-4.97); White Blood Count 6.5 K/mcL (4.3-11.1)
[2021-11-23 06:35] LABS: Estimated Average Glucose 117 mg/dl; Hemoglobin A1C 5.7 %
[2021-11-23 06:59] LABS: Calcium 9.5 mg/dL (8.6-10.3)
[2021-11-23 07:45] LABS: Phosphorous 3.9 mg/dL (2.7-4.5)
[2021-11-23] MEDS: Apixaban 5 MG TABLET PO SCH ×2 (09:14→20:35)
[2021-11-23] MEDS: Insulin LISPRO 300 UNITS/3 ML VIAL SUBQ SCH ×3 (09:17→16:30)
[2021-11-23] MEDS ORDERED: Insulin LISPRO 300 UNITS/3 ML VIAL SUBQ SCH (21:00)
[2021-11-23] MEDS ORDERED: cefTRIAXone 1,000 MG in 0.9 % Sodium Chloride 10 ML IVP SCH (21:00)
[2021-11-24] MEDS: Insulin LISPRO 300 UNITS/3 ML VIAL SUBQ SCH ×3 (08:11→17:26)
[2021-11-24 09:19] LABS: Basophils % 0.6 %; Eosinophils # 0.4 K/mcL (0.0-0.6); Eosinophils % 6.2 %; Hematocrit 35.9 % (35.3-44.9); Hemoglobin 11.4 g/dL (11.5-15.4); Immature Granulocytes % 0.5 % (0-4); Lymphocytes # 1.4 K/mcL (0.6-4.6); Lymphocytes % 21.5 %; Mean Corpuscular HGB Conc 31.8 g/dL (31.6-35.5); Mean Corpuscular Hemoglobin 29.5 pg (28.0-33.3); Mean Corpuscular Volume 92.8 fL (83.0-100.0); Mean Platelet Volume 8.6 fL (9.4-12.4); Monocytes # 0.6 K/mcL (0.0-1.3); Monocytes % 8.8 %; Platelet Count 334 K/mcL (140-400); Red Blood Count 3.87 M/mcL (3.82-4.97); Red Cell Distribution Width 12.7 % (11.5-14.5); Segmented Neutrophils % 62.4 %; White Blood Count 6.3 K/mcL (4.3-11.1)
[2021-11-24 09:37] LABS: Calcium 10.2 mg/dL (8.6-10.3); Potassium 4.3 mEq/L (3.5-5.1)
[2021-11-24] MEDS: Apixaban 5 MG TABLET PO SCH (09:48)
[2021-11-24 11:45] VITALS: PULSE 92
[2021-11-24 16:32] VITALS: BP 155/94; TEMP 97.8; O2SAT 96
== END 2021-11-24 18:00 | disposition home health service (06) ==
LOC: EMEROOARM 18:49 → 3ANU 18:49 → SUATTDRO 11-23 01:13 → 3ANU 11-23 01:58
PROVIDERS: ADMIT Internal Medicine; ATTEND Family Medicine